=== PATIENT | male | born 1950 | race Hispanic/Latino ===

== ENCOUNTER 2017-10-29 12:54 | Emergency (ER) | payer OTHER ==
[~2017-10-29] VITALS: Ht 167.6 cm; Wt 98.9 kg
[~2017-10-29 12:54] MED LIST: ACETAMINOPHEN-1 EAC3 PO; ASA81EC PO; ASPIR 8181 MG PO; ATORVASTATIN CA40 MG PO; Aspirin PO; BRIMONIDINE TAR10 ML OU; CARDURA4 MG PO; CARVEDILOL3.125 MG PO; CLONIDINE HCL0.1 MG PO; DIGOXIN125 MCG PO; DOXAZOSIN MESYLA4 MG PO; FUROSEMIDE40 MG PO; GLIMEPIRIDE2 MG PO; HYDRALAZINE HCL25 MG PO; HYDROXYZINE HCL25 MG PO; ISM30TCR PO; ISOSORBIDE MONO30 MG PO; LANTUS100 UNITS/ SQ; LASIX20 MG PO; LASIX40 MG PO; LATANOPROST2.5 ML OP; LEVAQUIN250 MG PO; LISINOPRIL10 MG PO; LISINOPRIL2.5 MG PO; LOPRESSOR25 MG PO; LORAZEPAM0.5 MG PO; LYRICA PO; LYRICA75 MG PO; NEXIUM40 MG PO; NIFEDIPINE ER30 M1 PO; NIFEDIPINE ER90 M1 PO; NIFEDIPINE ER90 MG PO; NORCO 7.5-3251 EACH PO; PEPCID20 MG PO; ULTRAM50 MG PO; VENTOLIN HFA18 GM INH; XANAX0.5 MG PO; [UNRECOGNIZED DRUG - OTHER] OU
--- OUTSIDE RECORDS SUMMARY | 2017-10-29 12:58 | XMS REPORT ---
[facility] Address Unknown Phone Unavailable Care Team Providers Care [facility] Nurse Name Role Phone ORLANDO UNGER Unavailable Unavailable Problems This patient has no known problems. Allergies, Adverse Reactions, Alerts This patient has no known allergies or adverse reactions. Medications This patient has no known medications. Results Test Description Test Time Test Comments Text Results Atomic Results Result Comments CHEST 2 VIEWS [place] [address] Patient Name: FILIPPO AKBAR MR #: [id number] : 1950 Age/Sex: 67/M Req #: [id number] Adm Physician: Ordered by: ORLANDO UNGER MD Report #: [id number] Location: OR Room/Bed: Procedure: [id number] DX/CHEST 2 VIEWS Exam Date: 04/13/17 Exam Time: 1330 REPORT STATUS: Signed PROCEDURE: CHEST 2 VIEWS TECHNIQUE: PA and lateral chest INDICATION: Preoperative x-ray for fistula COMPARISON: [facility], , CHEST 2 VIEWS, 2014, 7:42. FINDINGS: Mild interstitial scar in the lingula and left lower lobe. Lungs are otherwise clear and symmetrically inflated. No pleural effusions. Upper limits of normal heart size. Normal central vasculature. Intact skeleton. Healed fracture of the right ribs. CONCLUSION: No acute abnormality. Dictated by: Sai Rogers M.D. on at 13:57 Electronically approved by: Sai Rogers M.D. on 04/13/2017 at 13:57 Dictated By: SAI ROGERS MD [id number] Transcribed By: LISA on 04/13/17 1356 COPY TO: ORLANDO UNGER MD
[2017-10-29 14:41] LABS: BASOPHILS % 0.3 % (0.0-1.0); EOSINOPHILS # (AUTO) 0.2 (0.0-0.4); EOSINOPHILS % 2.2 % (0.0-6.0); HEMATOCRIT 28.8 % (38.2-49.6); HEMOGLOBIN 9.3 g/dL (14.0-18.0); LYMPHOCYTES # (AUTO) 0.8 (1.0-3.2); LYMPHOCYTES % 8.2 % (18.0-39.1); MEAN CORPUSCULAR HEMOGLOBIN 27.8 pg (28-32); MEAN CORPUSCULAR HGB CONC 32.3 g/dL (31-35); MONOCYTES # (AUTO) 0.8 (0.2-0.8); MONOCYTES % 7.4 % (4.4-11.3); NEUTROPHILS # (AUTO) 8.1 (2.1-6.9); NEUTROPHILS % 80.7 % (38.7-80.0); PLATELET COUNT 129 x10e3/uL (140-360); RED BLOOD COUNT 3.35 x10e6/uL (4.3-5.7); RED CELL DISTRIBUTION WIDTH 14.3 % (11.7-14.4)
[2017-10-29 14:47] LABS: CLARITY,URINE CLEAR (CLEAR); COLOR,URINE YELLOW (YELLOW); LEUKOCYTE ESTERASE ,URINE NEGATIVE (NEGATIVE); NITRITE,URINE NEGATIVE (NEGATIVE); PROTEIN,URINE DIPSTICK 3+ (NEGATIVE)
[2017-10-29 14:48] LABS: BILIRUBIN,URINE NEGATIVE (NEGATIVE); KETONES,URINE NEGATIVE (NEGATIVE); URINE UROBILINOGEN 0.2 mg/dL (0.2 - 1)
[2017-10-29 14:57] LABS: ALBUMIN 3.2 g/dL (3.5-5.0); ANION GAP 12.9 mmol/L (8-16); CALCIUM 8.7 mg/dL (8.4-10.2); CREATININE, SERUM 5.6 mg/dL (0.72-1.25); POTASSIUM 4.9 mmol/L (3.5-5.1)
[2017-10-29 15:03] LABS: MUCUS,URINE MANY (RARE); RBC,URINE 0-5 /HPF (0-5); WBC,URINE (MAN) 0-5 /HPF (0-5)
--- NOTE | 2017-10-29 18:55 | Diagnostic Imaging Report ---
EXAM: CT Abdomen and Pelvis WITHOUT contrast INDICATION: Right flank pain \S\renal stone protocl \S\[id number] \S\1820 COMPARISON: None. TECHNIQUE: Abdomen and pelvis were scanned utilizing a multidetector helical scanner from the lung base to the pubic symphysis without administration of IV contrast. Absence of intravenous contrast decreases sensitivity for detection of focal lesions and vascular pathology. Coronal and sagittal reformations were obtained. Renal stone protocol was performed. IV CONTRAST: None ORAL CONTRAST: Water COMPLICATIONS: None RADIATION DOSE: Total DLP: 675.87 mGy*cm Estimated effective dose: (DLP x 0.015 x size factor) mSv CTDIvol has been reviewed. It is below the limits set by the Radiation Protocol Committee (RPC). FINDINGS: LINES and TUBES: None. LOWER THORAX: Trace right pleural effusion with adjacent atelectasis. Small amount of pericardial fluid. Partially imaged coronary artery calcifications. HEPATOBILIARY: Unenhanced liver is unremarkable. Punctate right hepatic lobe calcified granuloma. No biliary ductal dilation. GALLBLADDER: No radio-opaque stones or sludge. No wall thickening. SPLEEN: No splenomegaly. PANCREAS: No focal masses or ductal dilatation. ADRENALS: Normal left adrenal nodule. Right adrenal gland is not visualized. KIDNEYS/URETERS: Right nephrectomy. No left hydronephrosis. Limited for evaluation of left renal parenchyma without intravenous contrast. 1.9 cm exophytic left inferior pole hypodensity is probably a cyst. Left perinephric fat stranding. No stones. GI TRACT: No abnormal distention, wall thickening, or evidence of bowel obstruction. Sigmoid anastomosis is intact. Scattered colonic diverticula without evidence of diverticulitis. Appendix is normal. PELVIC ORGANS/BLADDER: Unremarkable. LYMPH NODES: No lymphadenopathy. Increased number of subcentimeter right lower quadrant mesenteric lymph nodes (series 3, image 88). VESSELS: There is mild atherosclerotic disease in the aorta and major arterial branches. PERITONEUM / RETROPERITONEUM: No free air. Questionable trace ascites in the right paracolic gutter (series 3, image 81). BONES: Old posterior right rib fracture deformities. SOFT TISSUES: Mid abdominal wall eventration without evidence of herniation. IMPRESSION: 1. Status post right nephrectomy. 2. No left hydronephrosis or nephrolithiasis. 3. Increased number of subcentimeter right lower quadrant mesenteric lymph nodes may represent mesenteric adenitis in the appropriate clinical setting. Normal appendix. 4. Trace right pleural effusion with adjacent atelectasis. Signed by: Dr. Andre Mcleod MD on 10/29/2017 6:52 PM
[2017-10-29 20:37] VITALS: BP 158/81
== END 2017-10-29 20:40 | disposition home or self-care (01) ==
LOC: ER 12:54
DX: R10.9 Unspecified abdominal pain (principal); R11.0 Nausea; M54.5 Low back pain; M79.89 Other specified soft tissue disorders; H40.9 Unspecified glaucoma; Z85.53 Personal history of malignant neoplasm of renal pelvis; Z85.46 Personal history of malignant neoplasm of prostate
CPT/HCPCS: 36415; 74176; 80053; 81001; 83880; 85025; 93005; 99284

== ENCOUNTER 2018-04-19 15:42 | Inpatient (IN) | payer OTHER ==
[~2018-04-19] VITALS: Ht 167.6 cm; Wt 93.1 kg
[2018-04-19] MEDS ORDERED: ONDANSETRON HCL INJ 2 MG/ML VIAL IV STA (16:03)
[2018-04-19] MEDS ORDERED: DICYCLOMINE HCL 20 MG/2 ML VIAL IM ONE (16:15)
[2018-04-19 16:44] LABS: BASOPHILS % 0.2 % (0.0-1.0); EOSINOPHILS # (AUTO) 0.2 (0.0-0.4); EOSINOPHILS % 2.8 % (0.0-6.0); HEMATOCRIT 24.8 % (38.2-49.6); HEMOGLOBIN 7.8 g/dL (14.0-18.0); LYMPHOCYTES # (AUTO) 0.6 (1.0-3.2); LYMPHOCYTES % 6.4 % (18.0-39.1); MEAN CORPUSCULAR HEMOGLOBIN 28.6 pg (28-32); MEAN CORPUSCULAR HGB CONC 31.5 g/dL (31-35); MEAN CORPUSCULAR VOLUME 90.8 fL (81-99); MONOCYTES # (AUTO) 0.7 (0.2-0.8); MONOCYTES % 8.2 % (4.4-11.3); NEUTROPHILS % 81.6 % (38.7-80.0); PLATELET COUNT 152 x10e3/uL (140-360); RED BLOOD COUNT 2.73 x10e6/uL (4.3-5.7); RED CELL DISTRIBUTION WIDTH 15.9 % (11.7-14.4)
[2018-04-19 16:52] LABS: BILIRUBIN,URINE NEGATIVE (NEGATIVE); CLARITY,URINE CLEAR (CLEAR); COLOR,URINE YELLOW (YELLOW); KETONES,URINE NEGATIVE (NEGATIVE); LEUKOCYTE ESTERASE ,URINE NEGATIVE (NEGATIVE); NITRITE,URINE NEGATIVE (NEGATIVE); PROTEIN,URINE DIPSTICK 2+ (NEGATIVE); URINE UROBILINOGEN 0.2 mg/dL (0.2 - 1)
--- NOTE | 2018-04-19 16:54 | Diagnostic Imaging Report ---
EXAMINATION: CHEST SINGLE (PORTABLE) INDICATION: \S\ERMD ORDER \S\[id number] \S\1632 \S\Y COMPARISON: CT abdomen and pelvis 04/19/2018 FINDINGS: AP view TUBES and LINES: None. LUNGS: Lungs are well inflated. Bilateral pulmonary edema. Bibasilar atelectasis. PLEURA: Small bilateral pleural effusion, increased. No pneumothorax. HEART AND MEDIASTINUM: Mild enlargement of the cardiac silhouette. Enlarged pulmonary arteries. BONES AND SOFT TISSUES: No acute osseous lesion. Soft tissues are unremarkable. UPPER ABDOMEN: No free air under the diaphragm. IMPRESSION: Worsening bilateral pulmonary edema and small bilateral pleural effusion when compared to CT 04/19/2018. Signed by: Dr. Melissa Del Angel M.D. on 04/19/2018 4:51 PM
[2018-04-19 17:02] LABS: ALBUMIN 3.3 g/dL (3.5-5.0); ALBUMIN/GLOBULIN RATIO 1.1 (0.8-2.0); ANION GAP 19.3 mmol/L (8-16); CALCIUM 7.6 mg/dL (8.4-10.2); CREATININE, SERUM 6.72 mg/dL (0.72-1.25)
[2018-04-19 17:03] LABS: POTASSIUM 5.3 mmol/L (3.5-5.1)
--- NOTE | 2018-04-19 17:04 | Diagnostic Imaging Report ---
EXAM: CT Abdomen and Pelvis WITHOUT contrast INDICATION: \S\upper abd pain, IV contrast only \S\[id number] \S\1629 COMPARISON: CT abdomen and pelvis 10/29/2017 TECHNIQUE: Abdomen and pelvis were scanned utilizing a multidetector helical scanner from the lung base to the pubic symphysis without administration of IV contrast. Absence of intravenous contrast decreases sensitivity for detection of focal lesions and vascular pathology. Coronal and sagittal reformations were obtained. Routine protocol was performed. IV CONTRAST: None. ORAL CONTRAST: Water RADIATION DOSE: Total DLP: 725.2 mGy*cm Estimated effective dose: (DLP x 0.015 x size factor) mSv COMPLICATIONS: None FINDINGS: LINES and TUBES: None. LOWER THORAX: Small low-attenuation right pleural effusion, increased since prior exam. New trace left pleural effusion. Bibasilar atelectasis increased since prior exam. HEPATOBILIARY: No focal hepatic lesions. No biliary ductal dilation. GALLBLADDER: No radio-opaque stones or sludge. No wall thickening. SPLEEN: No splenomegaly. PANCREAS: No focal masses or ductal dilatation. ADRENALS: No adrenal nodules KIDNEYS/URETERS: Right nephrectomy. No hydronephrosis. No cystic or solid mass lesions. No stones. GI TRACT: Stable postsurgical changes in the sigmoid colon. Moderate amount of retained stool throughout the colon without distention. No abnormal distention, wall thickening, or evidence of bowel obstruction. Appendix is normal. PELVIC ORGANS/BLADDER: Unremarkable. LYMPH NODES: Unchanged view subcentimeter nonspecific mesenteric lymph nodes. VESSELS: Atherosclerotic calcifications of the abdominal aorta without aneurysm. PERITONEUM / RETROPERITONEUM: No free air or fluid. Mild increased fat stranding within the mesenteric fat in the right lower quadrant, better seen on series 2, image 38. There is a more defined adjacent oval-shaped fat density measuring 2.4 x 0.9 cm. BONES: Mild degenerative changes of the lumbar spine. SOFT TISSUES: Unremarkable. IMPRESSION: 1. Mildly increased fat stranding of the right lower quadrant mesenteric fat with interval development of an oval shaped fat containing lesion measuring up to 2.4 cm suggestive of omental infarction. Differential diagnosis include omental inflammation. Recommend follow-up CT abdomen and pelvis in 8 weeks. 2. Otherwise, no interval change when compared to prior exam. Signed by: Dr. Melissa Del Angel M.D. on 04/19/2018 5:00 PM
[2018-04-19 17:08] LABS: CREATINE KINASE MB 2.7 ng/mL (0-5.0)
[2018-04-19 17:10] LABS: EPITHELIAL CELLS,URINE RARE /LPF; WBC,URINE (MAN) 0-5 /HPF (0-5)
[2018-04-19 17:12] LABS: AMORPHOUS SEDIMENT,URINE MODERATE (FEW)
[2018-04-19] MEDS ORDERED: SODIUM CHLORIDE 0.9% 250ML 250 ML IV ONE (18:15)
[2018-04-19] MEDS: SODIUM CHLORIDE 0.9% 1000ML 1,000 ML IV SCH ×2 (18:35→18:52)
[2018-04-19] MEDS: FUROSEMIDE INJ 10 MG/ML 4 ML VIAL IV SCH (18:35)
[2018-04-19 19:25] VITALS: BP 160/66
[2018-04-19 21:16] VITALS: BP 138/59
[2018-04-19 22:17] VITALS: BP 141/64
[2018-04-19 22:20] VITALS: BP 141/57
[2018-04-19 22:30] VITALS: BP_SYST 131; BP_SYST 141; BP_DIAS 57; BP_DIAS 58
[2018-04-20] VITALS (8 sets, daily range): BP systolic 109–163; BP diastolic 51–76
[2018-04-20] MEDS ORDERED: EPOETIN ALFA 10000 UNIT/ML VIAL SC ONE (06:00)
[2018-04-20 08:03] LABS: BASOPHILS % 0.4 % (0.0-1.0); EOSINOPHILS # (AUTO) 0.2 (0.0-0.4); EOSINOPHILS % 2.7 % (0.0-6.0); HEMATOCRIT 26.1 % (38.2-49.6); HEMOGLOBIN 8.1 g/dL (14.0-18.0); LYMPHOCYTES # (AUTO) 0.5 (1.0-3.2); LYMPHOCYTES % 6.1 % (18.0-39.1); MEAN CORPUSCULAR HEMOGLOBIN 27.8 pg (28-32); MEAN CORPUSCULAR VOLUME 89.7 fL (81-99); MONOCYTES # (AUTO) 0.8 (0.2-0.8); MONOCYTES % 9.9 % (4.4-11.3); NEUTROPHILS # (AUTO) 6.7 (2.1-6.9); NEUTROPHILS % 80.1 % (38.7-80.0); PLATELET COUNT 138 x10e3/uL (140-360); RED BLOOD COUNT 2.91 x10e6/uL (4.3-5.7); RED CELL DISTRIBUTION WIDTH 15.5 % (11.7-14.4)
[2018-04-20 08:22] LABS: ANION GAP 18.9 mmol/L (8-16); CALCIUM 8.5 mg/dL (8.4-10.2); CREATININE, SERUM 6.61 mg/dL (0.72-1.25); POTASSIUM 4.9 mmol/L (3.5-5.1)
[2018-04-20] MEDS: FUROSEMIDE INJ 10 MG/ML 4 ML VIAL IV SCH ×2 (09:46→21:15)
[2018-04-20] MEDS ORDERED: ONDANSETRON HCL INJ 2 MG/ML VIAL IV PRN (10:00)
[2018-04-20] MEDS ORDERED: CARVEDILOL3.125 MG PO (11:49)
[2018-04-20] MEDS ORDERED: LEVEMIR100 UNIT/1 SC (15:32)
[2018-04-20] MEDS ORDERED: DEXTROSE 50% SYRINGE 50 ML IV PRN (15:45)
[2018-04-20] MEDS: SODIUM BICARBONATE 650 MG TAB PO SCH (16:04)
[2018-04-20] MEDS: BRIMONIDINE TARTRATE 0.15% OPTH DRPS 10ML BTL OP SCH (16:09)
[2018-04-20] MEDS: CARVEDILOL 3.125 MG TAB PO SCH (16:09)
[2018-04-20] MEDS: INSULIN REGULAR, HUMAN 100 UNIT/1 ML 3ML VIAL SQ SCH ×2 (16:43→21:42)
--- NOTE | 2018-04-20 17:13 | Consultation ---
DATE OF CONSULTATION: April 20, 2018 REQUESTING PHYSICIAN: Dr. Torres. REASON FOR CONSULTATION: Chronic kidney disease. HISTORY OF PRESENT ILLNESS: This is a 68-year-old male with history of CKD stage 5, presumed diabetic hypertensive end-organ damage, had a fistula placed about a week ago, came in with worsening nausea, some vomiting as well as dyspnea. Chest x-ray is showing fluid overload. Abdomen CT did not show any obstruction. Creatinines in the 6 range, BUN in the 90, serum CO2 19. His potassium was high at 5.3, it has come down to 4.9 with diuresis. He is feeling somewhat better; however, still has some dyspnea as well as nausea. He feels anxious about the whole situation. PAST MEDICAL HISTORY 1. CKD, stage 5. 2. Hypertension. 3. Type 2 diabetes and end-organ damage. 4. Status post AV access placement. 5. Anemia of CKD. HOME MEDICATIONS: Please see list. REVIEW OF SYSTEMS CONSTITUTIONAL: He feels weak. RESPIRATORY: Dyspnea has improved. CARDIAC: Dyspnea. VASCULAR: Has leg swelling. NEUROLOGIC: Denies headache or seizures. PSYCH: Feels anxious. Rest of the review is negative. FAMILY HISTORY: Diabetes. PHYSICAL EXAMINATION GENERAL: Lying in bed. VITAL SIGNS: Temperature is 98.2, pulse 88, blood pressure 160/76. HEENT: Slight facial puffiness. NECK: JVD at 10 cm. CHEST: Faint crackles at the bases. CARDIAC: Normal heart tones. Rhythm sounds regular. ABDOMEN: Benign. EXTREMITIES: 1+ edema. NEURO: Alert and appropriate. No tremors are seen. LABS: Hemoglobin is 9.1, white count 8.3, platelets 138,000. Sodium 138, potassium 4.9, serum CO2 of 19, creatinine 6.6, BUN 92, calcium 8.5. Phosphorous is added for tomorrow. UA was showing positive proteinuria, no cast. Chest x-ray, fluid overload. ASSESSMENT 1. Chronic kidney disease, stage 5. 2. Metabolic acidosis. 3. Mild hyperkalemia, improved. 4. Fluid overload, improved. 5. Presumed diabetic, hypertensive end-organ damage. PLAN: We will request special procedures to place tunneled catheter, initiate dialysis as such. I think we can wait till they are able to do this as an elective procedure rather than emergently with a temporary dialysis catheter as we do known that the dialysis requirements are long-term., Keep salt and fluid restricted. He has got Epogen and sodium bicarbonate. We will follow along. Job#: [id number] CYNTHIA
[2018-04-20] MEDS: LATANOPROST(OPTH) 2.5 ML BTL OP SCH (21:16)
[2018-04-20] MEDS: INSULIN DETEMIR 100 UNIT/ML PEN SQ SCH (21:42)
[2018-04-21] VITALS (7 sets, daily range): BP systolic 119–173; BP diastolic 50–73
[2018-04-21 06:30] LABS: ANION GAP 17.9 mmol/L (8-16); CALCIUM 8.4 mg/dL (8.4-10.2); CREATININE, SERUM 6.57 mg/dL (0.72-1.25); PHOSPHORUS 6.4 MG/DL (2.3-4.7); POTASSIUM 4.9 mmol/L (3.5-5.1)
[2018-04-21] MEDS: INSULIN REGULAR, HUMAN 100 UNIT/1 ML 3ML VIAL SQ SCH ×4 (07:30→21:54)
[2018-04-21] MEDS: DOXAZOSIN MESYLATE 2 MG TAB PO SCH (09:31)
[2018-04-21] MEDS: BRIMONIDINE TARTRATE 0.15% OPTH DRPS 10ML BTL OP SCH ×2 (09:31→17:16)
[2018-04-21] MEDS: FUROSEMIDE INJ 10 MG/ML 4 ML VIAL IV SCH ×2 (09:31→21:54)
[2018-04-21] MEDS: CARVEDILOL 3.125 MG TAB PO SCH ×2 (09:31→17:16)
[2018-04-21] MEDS: SODIUM BICARBONATE 650 MG TAB PO SCH ×2 (09:31→17:16)
[2018-04-21] MEDS: SEVELAMER CARBONATE 800 MG TAB PO SCH (17:16)
[2018-04-21] MEDS: LATANOPROST(OPTH) 2.5 ML BTL OP SCH (21:54)
[2018-04-21] MEDS: INSULIN DETEMIR 100 UNIT/ML PEN SQ SCH (21:56)
[2018-04-22] VITALS (9 sets, daily range): BP systolic 129–180; BP diastolic 56–85
--- NOTE | 2018-04-22 00:02 | Progress Note ---
DATE: April 21, 2018 NEPHROLOGY FOLLOWUP Feeling a bit better. Dyspnea has improved. He has been on IV Lasix. Urine output was not documented. PHYSICAL EXAMINATION: VITAL SIGNS: Temperature 98.2, pulse 66, blood pressure 134/55. HEENT: Atraumatic. NECK: No definite JVD. CHEST: Faint crackles at the bases. EXTREMITIES: 1+ to 2+ edema. LABS: Hemoglobin is 8.1, K is down to 4.9, creatinine 6.57, BUN 93, phosphorus 6.4. ASSESSMENT: 1. Chronic kidney disease, stage 5. He is probably in end-stage renal disease at this point. 2. Fluid overload. 3. Acidosis, improved. 4. Positive end-stage renal disease. 5. Hypertensive and diabetic end-organ damage. PLAN: Await tunneled dialysis catheter placement. I think the risk of worsening fluid overload, other metabolic abnormality is too high at this point. Await maturity of his AV fistula. AM chemistries. He got erythropoietin yesterday. Will follow along. Job#: [id number]
[2018-04-22 05:56] LABS: INR 1.08
[2018-04-22 05:57] LABS: PARTIAL THROMBOPLASTIN TIME 49.6 seconds (23.8-35.5)
[2018-04-22] MEDS: INSULIN REGULAR, HUMAN 100 UNIT/1 ML 3ML VIAL SQ SCH ×4 (07:30→21:09)
[2018-04-22] MEDS: SEVELAMER CARBONATE 800 MG TAB PO SCH ×3 (08:00→17:39)
[2018-04-22] MEDS: CARVEDILOL 3.125 MG TAB PO SCH ×2 (08:00→17:39)
[2018-04-22] MEDS: SODIUM BICARBONATE 650 MG TAB PO SCH ×2 (08:25→17:34)
[2018-04-22] MEDS: DOXAZOSIN MESYLATE 2 MG TAB PO SCH (08:25)
[2018-04-22] MEDS: FUROSEMIDE INJ 10 MG/ML 4 ML VIAL IV SCH ×2 (08:43→21:09)
[2018-04-22] MEDS: BRIMONIDINE TARTRATE 0.15% OPTH DRPS 10ML BTL OP SCH ×2 (08:43→17:55)
--- NOTE | 2018-04-22 09:23 | Progress Note ---
DATE: April 22, 2018 Breathing is better. Some swelling still. He is nervous about catheter placement. PHYSICAL EXAMINATION GENERAL: Lying in bed in no distress. VITAL SIGNS: Temperature 98.4, pulse 75, blood pressure 150/65. HEENT: Grossly atraumatic. EXTREMITIES: Trace to 1+ edema. CHEST: Clear. Bilateral breath sounds equal. HEART: Normal heart tones. Rhythm sounds regular. LABS: Hemoglobin 8.1. He got Epogen yesterday. Creatinine was 6.6, BUN in the 90s. Hyperkalemia has gotten better. ASSESSMENT 1. Chronic kidney disease, stage 5, presumed diabetic nephropathy. 2. Fluid overload. 3. Metabolic acidosis. 4. Hyperkalemia. 5. Taken together, it appears that he has reached end-stage renal disease. Access is not ready yet. PLAN: Place tunneled dialysis catheter. Get case management to see and initiate dialysis. Will follow along. Stay on p.o. bicarbonate for now. Job#: [id number]
[2018-04-22] MEDS ORDERED: SODIUM CHLORIDE 0.9% 1000ML 2,000 ML IV PRN (10:45)
[2018-04-22] MEDS ORDERED: HEPARIN SOD (PORCINE) 1000 UNIT/ML SDV IV PRN (10:45)
[2018-04-22] MEDS ORDERED: SODIUM CHLORIDE 0.9% 500ML 1,000 ML ONE (10:50)
[2018-04-22] MEDS ORDERED: MIDAZOLAM HCL 2 MG/2 ML VIAL ONE (10:50)
[2018-04-22] MEDS ORDERED: LIDOCAINE 1% W/EPINEPHRINE 20 ML VIAL ONE (10:50)
[2018-04-22] MEDS ORDERED: FENTANYL CITRATE/PF 100MCG/2 ML INJ ONE (10:50)
[2018-04-22] MEDS ORDERED: LIDOCAINE HCL 1% LOCAL INJ 20 ML VIAL ONE (11:07)
[2018-04-22] MEDS ORDERED: HEPARIN SOD (PORCINE) 1000 UNIT/ML 30ML ONE (11:15)
[2018-04-22] MEDS: LORAZEPAM 0.5 MG TAB PO PRN ×2 (13:04→21:58)
[2018-04-22] MEDS: LATANOPROST(OPTH) 2.5 ML BTL OP SCH (21:09)
[2018-04-22] MEDS: INSULIN DETEMIR 100 UNIT/ML PEN SQ SCH (21:09)
[2018-04-23] VITALS (7 sets, daily range): BP systolic 114–177; BP diastolic 51–113
[2018-04-23] MEDS: INSULIN REGULAR, HUMAN 100 UNIT/1 ML 3ML VIAL SQ SCH ×4 (07:30→20:30)
[2018-04-23] MEDS: CARVEDILOL 3.125 MG TAB PO SCH ×2 (08:00→16:42)
[2018-04-23 08:30] LABS: BASOPHILS # (AUTO) 0.1 (0.0-0.1); BASOPHILS % 0.6 % (0.0-1.0); EOSINOPHILS # (AUTO) 0.3 (0.0-0.4); EOSINOPHILS % 3.8 % (0.0-6.0); LYMPHOCYTES % 11.3 % (18.0-39.1); MEAN CORPUSCULAR HEMOGLOBIN 28.3 pg (28-32); MEAN CORPUSCULAR VOLUME 91.2 fL (81-99); MONOCYTES # (AUTO) 1.1 (0.2-0.8); MONOCYTES % 12.2 % (4.4-11.3); NEUTROPHILS # (AUTO) 6.3 (2.1-6.9); NEUTROPHILS % 71.3 % (38.7-80.0); PLATELET COUNT 162 x10e3/uL (140-360); RED BLOOD COUNT 3.18 x10e6/uL (4.3-5.7); RED CELL DISTRIBUTION WIDTH 15.2 % (11.7-14.4)
[2018-04-23 08:51] LABS: ALBUMIN 3.2 g/dL (3.5-5.0); ALBUMIN/GLOBULIN RATIO 1.1 (0.8-2.0); ANION GAP 19.1 mmol/L (8-16); CALCIUM 8.9 mg/dL (8.4-10.2); CREATININE, SERUM 5.26 mg/dL (0.72-1.25); POTASSIUM 4.1 mmol/L (3.5-5.1)
[2018-04-23] MEDS: SEVELAMER CARBONATE 800 MG TAB PO SCH ×3 (08:55→16:54)
[2018-04-23] MEDS: FUROSEMIDE INJ 10 MG/ML 4 ML VIAL IV SCH ×2 (08:55→21:26)
[2018-04-23] MEDS: SODIUM BICARBONATE 650 MG TAB PO SCH ×2 (08:56→16:54)
[2018-04-23] MEDS: DOXAZOSIN MESYLATE 2 MG TAB PO SCH (08:57)
[2018-04-23] MEDS: BRIMONIDINE TARTRATE 0.15% OPTH DRPS 10ML BTL OP SCH ×2 (10:33→16:53)
--- OUTSIDE RECORDS SUMMARY | 2018-04-23 13:34 | XMS REPORT ---
Author Author Keri Coleman Organization [employer] Address Unknown Phone Unavailable Care Team Providers Care Fisher Diver Net Name Role Phone Keri Coleman CP Unavailable Encounters Encounter Location Date check status of referral [facility] Jun 09, 2014 Left Knee [facility] Jun 09, 2014 MRI Knee Right [facility] Apr 14, 2014 Follow Up Lab & MRI Results [facility] Apr 28, 2014 pain contract follow up [facility] May 26, 2014 Problems Problem Type Condition ICD-9 Code Onset Dates Condition Status Problem Hypertension 997.91 Active Problem Diabetes mellitus without mention of complication, type II or unspecified type, uncontrolled 250.02 Active Problem Chronic pain syndrome 338.4 Active Assessment Pain in joint, lower leg 719.46 Active Assessment Stiffness of joint, not elsewhere classified, lower leg 719.56 Active Social History Social History Element Qualifiers Date Reported Smoking status: . Are you a: Never Smoker May 26, 2014 alcohol no. May 26, 2014 Summary Purpose [employer] Submission
--- OUTSIDE RECORDS SUMMARY | 2018-04-23 13:34 | XMS REPORT ---
Author Author Keri Coleman Organization [employer] Address Unknown Phone Unavailable Care Team Providers Care Central Service Tech Name Role Phone Keri Coleman CP Unavailable Encounters Encounter Location Date check status of referral [facility] Jun 09, 2014 Left Knee MRI [facility] Jun 09, 2014 [facility] Jun 22, 2014 Follow Up MRI Results [facility] Jun 22, 2014 MRI Knee Right [facility] Apr 14, 2014 Follow Up Lab & MRI Results [facility] Apr 28, 2014 pain contract follow up [facility] May 26, 2014 referral [facility] November 02, 2014 Follow up Routine [facility] Aug 25, 2014 RIGHT KNEE JORGE L [facility] September 17, 2014 Problems Problem Type Condition ICD-9 Code Onset Dates Condition Status Problem Hypertension 997.91 Active Problem Diabetes mellitus without mention of complication, type II or unspecified type, uncontrolled 250.02 Active Problem Chronic pain syndrome 338.4 Active Assessment Pain in joint, lower leg 719.46 Active Assessment 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 Are you a: Never Smoker September 17, 2014 alcohol no. September 17, 2014 Summary Purpose [employer] Submission
--- OUTSIDE RECORDS SUMMARY | 2018-04-23 13:34 | XMS REPORT ---
Author Author Devorah Hudson [facility] [employer] Address Unknown Phone Unavailable Care Team Providers Care Gift Shop Manager Name Role Phone Devorah Hudson Unavailable Encounters Encounter Location Date check status of referral [facility] Jun 09, 2014 Left Knee MRI [facility] Jun 09, 2014 [facility] Jun 22, 2014 Follow Up MRI Results [facility] Jun 22, 2014 MRI Knee Right [facility] Apr 14, 2014 Lyrica refilled, needs OV [facility] December 01, 2014 Follow Up Lab & MRI Results [...] Active Problem Chronic pain syndrome 338.4 Active Medications Medication Code System Code Instructions Start Date End Date Status Dosage Lyrica MEDISPAN [id number] 75 MG Orally one cap in am, and 2 cap in HS Apr 28, 2014 Active 1 capsule Social History Social History Element Qualifiers Date Reported Smoking status: . Are you a: Never Smoker September 17, 2014 alcohol no. September 17, 2014 Summary Purpose [employer] Submission
--- OUTSIDE RECORDS SUMMARY | 2018-04-23 13:34 | XMS REPORT | Continuity of Care Document ---
Author Author [facility] Interface Address Unknown Phone Unavailable Problems Problem Status Onset Date Classification Date Reported Comments Source Generalized osteoarthrosis, involving multiple sites Active Problem 01/20/2015 Keri Gaxiolalanny Hypertension Active Problem 01/20/2015 Keri Nasyedsherice Diabetes mellitus without mention of complication, type II or unspecified type, uncontrolled Active Problem 01/20/2015 Keri Jared Chronic pain syndrome Active Diagnosis 01/20/2015 Keri Jared Acquired absence of kidney Active Diagnosis 05/29/2014 Keri Jared Pain in joint, lower leg Active Diagnosis 01/20/2015 Keri Jared Pathak's cyst Active Diagnosis 05/29/2014 Keri Jared Stiffness of joint, not elsewhere classified, lower leg Active Diagnosis 06/17/2014 Keri Nalanny OA-knees Active Diagnosis 01/20/2015 Keri Jared Counseling NOS Active Diagnosis 08/27/2014 Keri Nalanny therapeutic drug monitoring Active Diagnosis 08/27/2014 Keri Jared Medications Medication Details Route Status Patient Instructions Ordering Provider Order Date Source Hydrocodone-Acetaminophen 1 tablet as needed Orally Active 5- 325 MG Orally every 8 hrs Naja 02/13/2015 Keri Shermansherice Tramadol HCl 1 tablet as needed Orally Active 50 MG Orally every 6 hrs Naja 10/20/2014 Keri Sherman Hydrocodone-Acetaminophen 1 tablet as needed Orally Active 5- 325 MG Orally every 6 hrs Naja 06/25/2014 Keri Coleman Lyrica 1 capsule Orally Active 75 MG Orally one cap in am, and 2 cap in HS Najam 04/28/2014 Keri Nalanny HydrOXYzine HCl 1 tablet Orally Active 25 MG Orally Three times a day [facility] NIFEdipine ER 1 tablet Orally Active 90 MG Orally Once a day [facility] Atorvastatin Calcium 1 tablet Orally Active 40 MG Orally [facility] Doxazosin Mesylate 1 tablet Orally Active 4 MG Orally Once a day [facility] Lanoxin 1 tablet Orally Active 0.125 MG Orally Once a day Najam Keri Nalanny Lantus Unknown Subcutaneous Active 100 UNIT/ML Subcutaneous Najam Keri Nalanny Carvedilol 1 tablet with food Orally Active 3.125 MG Orally Twice a day Najasherice Keri Nasyedm Tramadol HCl 1 tablet as needed Orally Active 50 MG Orally every 6 hrs Najam Keri Nasyedm Furosemide 1 tablet Orally Active 40 MG Orally Once a day Najam Keri Nasyedm Hydrocodone-Acetaminophen 1 tablet as needed Orally Active 5- 325 MG Orally every 6 hrs Najam Keri Coleman Allergies, Adverse Reactions, Alerts Substance Category Reaction Severity Reaction type Status Date Reported Comments Source N.K.D.A. Adverse Reaction Info Not Available Adverse Reaction Active 01/14/2015 Keri Coleman Immunizations Immunization Date Given Site Status Last Updated Comments Source Results Order Name Results Value Reference Range Date Interpretation Comments Source Vital Signs Vital Sign Value Date Comments Source Height 64 01/14/2015 Keri Najam Diastolic (mm Hg) 60 01/14/2015 Keri Najam Systolic (mm Hg) 121 01/14/2015 Keri Nasyedm Weight 220.8 01/14/2015 Keri Najam Height 64 08/25/2014 Keri Najam Diastolic (mm Hg) 71 08/25/2014 Keri Najam Systolic (mm Hg) 141 08/25/2014 Keri Najam Weight 223 08/25/2014 Keri Najam Height 64 05/26/2014 Keri Najam Diastolic (mm Hg) 68 05/26/2014 Keri Najam Systolic (mm Hg) 137 05/26/2014 Keri Najam Weight 223 05/26/2014 Keri Najam Height 64 04/28/2014 Keri Najam Diastolic (mm Hg) 62 04/28/2014 Keri Najam Systolic (mm Hg) 133 04/28/2014 Keri Najam Weight 218 04/28/2014 Keri Nasyedm Encounters Location Location Details Encounter Type Encounter Number Reason For Visit Attending Provider ADM Date DC Date Status Source Rheumatology Clinic MRI Knee Right [id number] 04/14/2014 04/14/2014 Keri Coleman [facility] MRI Knee Right [id number] 04/14/2014 04/14/2014 [facility] MRI Knee Right [id number] 04/14/2014 04/14/2014 [facility] MRI Knee Right [id number] 04/14/2014 04/14/2014 [facility] MRI Knee Right [id number] 04/14/2014 04/14/2014 [facility] MRI Knee Right [id number] 04/14/2014 04/14/2014 [facility] MRI Knee Right [id number] 04/14/2014 04/14/2014 [facility] MRI Knee Right [id number] 04/14/2014 04/14/2014 [facility] MRI Knee Right [id number] 04/14/2014 04/14/2014 [facility] Rhe[facility]ology Clinic Follow Up Lab & MRI Results [id number] 04/28/2014 04/28/2014 [facility]ology Clinic Follow Up Lab & MRI Results [id number] 04/28/2014 04/28/2014 [facility] Clinic Follow Up Lab & MRI Results [id number] 04/28/2014 04/28/2014 [facility]ology Clinic Follow Up Lab & MRI Results [id number] 04/28/2014 04/28/2014 [facility] Rhe[facility]ology Clinic Follow Up Lab & MRI Results [id number] 04/28/2014 04/28/2014 [facility] Rhe[facility]ology Clinic Follow Up Lab & MRI Results [id number] 04/28/2014 04/28/2014 [facility] Rheumatology Clinic Follow Up Lab & MRI Results [id number] 04/28/2014 04/28/2014 [facility] Rhe[facility]ology Clinic Follow Up Lab & MRI Results [id number] 04/28/2014 04/28/2014 [facility] Rheumatology Clinic Follow Up Lab & MRI Results [id number] 04/28/2014 04/28/2014 [facility] Rheumatology Clinic pain contract follow up [id number] 05/26/2014 05/26/2014 [facility] Rhe[facility]ology Clinic pain contract follow up [id number] 05/26/2014 05/26/2014 [facility] Rheumatology Clinic pain contract follow up [id number] 05/26/2014 05/26/2014 [facility] Rhe[facility]ology Clinic pain contract follow up [id number] 05/26/2014 05/26/2014 [facility]ology Clinic pain contract follow up [id number] 05/26/2014 05/26/2014 [facility]ology Clinic pain contract follow up [id number] 05/26/2014 05/26/2014 [facility] Rheumatology Clinic pain contract follow up [id number] 05/26/2014 05/26/2014 [facility] Rheumatology [facility] pain contract follow up [id number] 05/26/2014 05/26/2014 [facility] Rheumatology [facility] check status of referral [id number] 06/09/2014 06/09/2014 [facility] Clinic check status of referral [id number] 06/09/2014 06/09/2014 [facility] Rheumatology [facility] check status of referral [id number] 06/09/2014 06/09/2014 [facility] Rheumatology [facility] check status of referral [id number] 06/09/2014 06/09/2014 [facility] Rheumatology [facility] check status of referral [id number] 06/09/2014 06/09/2014 [facility] Rheumatology [facility] check status of referral [id number] 06/09/2014 06/09/2014 [facility] Rheumatology [facility] check status of referral [id number] 06/09/2014 06/09/2014 [facility] Left Knee MRI [id number] 06/09/2014 06/09/2014 [facility] Left Knee MRI [id number] 06/09/2014 06/09/2014 [facility] Left Knee MRI [id number] 06/09/2014 06/09/2014 [facility] Left Knee MRI [id number] 06/09/2014 06/09/2014 [facility] Left Knee MRI [id number] 06/09/2014 06/09/2014 [facility] Left Knee MRI [id number] 06/09/2014 06/09/2014 [facility]ology Clinic Follow Up MRI Results [id number] 06/22/2014 06/22/2014 [facility] Clinic Follow Up MRI Results [id number] 06/22/2014 06/22/2014 [facility] Follow Up MRI Results [id number] 06/22/2014 06/22/2014 [facility] Clinic Follow Up MRI Results [id number] 06/22/2014 06/22/2014 [facility] Follow Up MRI Results [id number] 06/22/2014 06/22/2014 [facility] Clinic orthopedica [id number] 06/22/2014 06/22/2014 [facility] orthopedica [id number] 06/22/2014 06/22/2014 [facility] orthopedica [id number] 06/22/2014 06/22/2014 [facility] orthopedica [id number] 06/22/2014 06/22/2014 [facility] orthopedica [id number] 06/22/2014 06/22/2014 [facility] Clinic Follow up Routine [id number] 08/25/2014 08/25/2014 [facility] Clinic Follow up Routine [id number] 08/25/2014 08/25/2014 [facility] Clinic Follow up Routine [id number] 08/25/2014 08/25/2014 [facility] Clinic Follow up Routine [id number] 08/25/2014 08/25/2014 [facility] Clinic RIGHT KNEE JORGE L INJ [id number] 09/17/2014 09/17/2014 [facility] RIGHT KNEE JORGE L INJ [id number] 09/17/2014 09/17/2014 [facility] RIGHT KNEE JORGE L INJ [id number] 09/17/2014 09/17/2014 [facility] Clinic referral [id number] 11/02/2014 11/02/2014 [facility] referral [id number] 11/02/2014 11/02/2014 [facility] Clinic referral [id number] 11/02/2014 11/02/2014 [facility] Clinic Lyrica refilled, needs OV [id number] 12/01/2014 12/01/2014 Keri Coleman [facility] Lyrica refilled, needs OV [id number] 12/01/2014 12/01/2014 Keri Coleman [facility]ology Clinic Follow up Routine [id number] 01/14/2015 01/14/2015 Keri Coleman Procedures Procedure Code Date Perfomer Comments Source
--- OUTSIDE RECORDS SUMMARY | 2018-04-23 13:34 | XMS REPORT ---
Author Author Keri Coleman Organization [employer] Address Unknown Phone Unavailable Care Team Providers Care Rehabilitation Psychologist Name Role Phone Whitsherice Keri CP Unavailable Allergies, Adverse Reactions, Alerts Substance Reaction Event Type N.K.D.A. Info Not Available Non Drug Allergy Encounters Encounter Location Date MRI Knee Right Rheumatology Clinic Apr 14, 2014 Follow Up Lab & MRI Results Rheumatology Clinic Apr 28, 2014 pain contract follow up Rheumatology Clinic May 26, 2014 Problems Problem Type Condition ICD-9 Code Onset Dates Condition Status Assessment Generalized osteoarthrosis, involving multiple sites 715.09 Active Problem Hypertension 997.91 Active Problem Diabetes mellitus without mention of complication, type II or unspecified type, uncontrolled 250.02 Active Problem Chronic pain syndrome 338.4 Active Assessment Acquired absence of kidney V45.73 Active Assessment Pain in joint, lower leg 719.46 Active Assessment Chronic pain syndrome 338.4 Active Assessment Pathak's cyst 727.51 Active Medications Medication Code System Code Instructions Start Date End Date Status Dosage HydrOXYzine HCl [facility] [address]-60 25 MG Orally Three times a day Active 1 tablet NIFEdipine ER [facility] [address]-11 90 MG Orally Once a day Active 1 tablet Atorvastatin Calcium [facility] [address]-88 40 MG Orally Once a day Active 1 tablet Hydrocodone-Acetaminophen [facility] [address]-31 5-325 MG Orally every 6 hrs Jun 25, 2014 Active 1 tablet as needed Doxazosin Mesylate [facility] [address]-14 4 MG Orally Once a day Active 1 tablet Lanoxin [facility] [address]-11 0.125 MG Orally Once a day Active 1 tablet Lantus [facility] [address]-22 100 UNIT/ML Subcutaneous Active Unknown Carvedilol [facility] [address]-94 3.125 MG Orally Twice a day Active 1 tablet with food Tramadol HCl [facility] [address]-33 50 MG Orally every 6 hrs Active 1 tablet as needed Lyrica [facility] [address]-88 75 MG Orally Twice a day Apr 28, 2014 Active 1 capsule Furosemide [facility] [address]-84 40 MG Orally Once a day Active 1 tablet Social History Social History Element Qualifiers Date Reported Smoking status: . Are you a: Never Smoker May 26, 2014 alcohol no. May 26, 2014 Vital Signs Date/Time: May 26, 2014 Height 64 in Blood Pressure Diastolic 68 mm Hg Blood Pressure Systolic 137 mm Hg Weight 223 lbs Summary Purpose [employer] Submission
--- OUTSIDE RECORDS SUMMARY | 2018-04-23 13:34 | XMS REPORT ---
Author Author Keri Coleman Organization [employer] Address Unknown Phone Unavailable Care Team Providers Care Pump Installation And Servicer Name Role Phone Keri Coleman CP Unavailable [...] Active Problem Chronic pain syndrome 338.4 Active Social History Social History Element Qualifiers Date Reported Smoking status: . Are you a: Never Smoker Jun 22, 2014 alcohol no. Jun 22, 2014 Summary Purpose [employer] Submission
--- OUTSIDE RECORDS SUMMARY | 2018-04-23 13:34 | XMS REPORT ---
Author Author Keri Coleman Organization [employer] Address Unknown Phone Unavailable Care Team Providers Care Stress Analyst Name Role Phone Keri Coleman CP Unavailable Allergies, Adverse Reactions, Alerts Substance Reaction Event Type N.K.D.A. Info Not Available Non Drug Allergy Encounters Encounter Location Date MRI Knee Right Rheumatology Clinic Apr 14, 2014 Follow Up Lab & MRI Results Rheumatology Clinic Apr 28, 2014 Problems Problem Type Condition ICD-9 Code Onset Dates Condition Status Problem Diabetes mellitus without mention of complication, type II or unspecified type, uncontrolled 250.02 Active Assessment Pathak's cyst 727.51 Active Problem Hypertension 997.91 Active Assessment Generalized osteoarthrosis, involving multiple sites 715.09 Active Assessment Acquired absence of kidney V45.73 Active Assessment Pain in joint, lower leg 719.46 Active Medications Medication Code System Code Instructions Start Date End Date Status Dosage NIFEdipine ER [facility] [address]-51 90 MG Orally Once a day Active 1 tablet Hydrocodone-Acetaminophen [facility] [address]-40 5-325 MG Orally every 6 hrs Active 1 tablet as needed Doxazosin Mesylate [facility] [address]-66 4 MG Orally Once a day Active 1 tablet Lanoxin [facility] [address]-68 0.125 MG Orally Once a day Active 1 tablet Tramadol HCl [facility] [address]-99 50 MG Orally every 6 hrs Active 1 tablet as needed Furosemide [facility] [address]-49 40 MG Orally Once a day Active 1 tablet Lantus [facility] [address]-63 100 UNIT/ML Subcutaneous Active Unknown Atorvastatin Calcium [facility] [address]-62 40 MG Orally Once a day Active 1 tablet Carvedilol [facility] [address]-14 3.125 MG Orally Twice a day Active 1 tablet with food Lyrica [facility] [address]-54 75 MG Orally Twice a day Apr 28, 2014 Active 1 capsule HydrOXYzine HCl [facility] [address]-64 25 MG Orally Three times a day Active 1 tablet Social History Social History Element Qualifiers Date Reported Smoking status: . Are you a: Never Smoker Apr 28, 2014 alcohol no. Apr 28, 2014 Vital Signs Date/Time: Apr 28, 2014 Height 64 in Blood Pressure Diastolic 62 mm Hg Blood Pressure Systolic 133 mm Hg Weight 218 lbs Summary Purpose [employer] Submission
--- OUTSIDE RECORDS SUMMARY | 2018-04-23 13:34 | XMS REPORT ---
Author Author Keri Coleman [facility] [employer] Address Unknown Phone Unavailable Care Team Providers Care Rehabilitation Liaison Name Role Phone WhitshericeKeri CP Unavailable Allergies, Adverse Reactions, Alerts Substance Reaction Event Type N.K.D.A. Info Not Available Non Drug Allergy Encounters Encounter Location Date check status of [...] MRI Results Rheumatology Clinic Apr 28, 2014 Follow up Routine Rheumatology Clinic January 14, 2015 pain contract follow up Rheumatology Clinic May 26, 2014 referral Rheumatology Clinic November 02, 2014 Follow up Routine Rheumatology Clinic Aug 25, 2014 RIGHT KNEE JORGE L INJ Rheumatology Clinic September 17, 2014 Problems Problem Type Condition ICD-9 Code Onset Dates Condition Status Assessment Chronic pain syndrome 338.4 Active Problem Chronic pain syndrome 338.4 Active Problem Hypertension 997.91 Active Problem Generalized osteoarthrosis, involving multiple sites 715.09 Active Assessment Pain in joint, lower leg 719.46 Active Assessment OA-knees 715.96 Active Problem Diabetes mellitus without mention of complication, type II or unspecified type, uncontrolled 250.02 Active Assessment Generalized osteoarthrosis, involving multiple sites 715.09 Active Medications Medication Code System Code Instructions Start Date End Date Status Dosage Lantus [facility] [address]-15 100 UNIT/ML Subcutaneous Active Unknown Carvedilol [facility] [address]-02 3.125 MG Orally Twice a day Active 1 tablet with food NIFEdipine ER [facility] [address]-19 90 MG Orally Once a day Active 1 tablet Doxazosin Mesylate [facility] [address]-20 4 MG Orally Once a day Active 1 tablet Lanoxin [facility] [address]-16 0.125 MG Orally Once a day Active 1 tablet Hydrocodone-Acetaminophen [facility] [address]-06 5-325 MG Orally every 8 hrs Feb 13, 2015 Active 1 tablet as needed HydrOXYzine HCl [facility] [address]-16 25 MG Orally Three times a day Active 1 tablet Furosemide [facility] [address]-13 40 MG Orally Once a day Active 1 tablet Lyrica [facility] [address]-75 75 MG Orally one cap in am, and 2 cap in HS Apr 28, 2014 Active 1 capsule Atorvastatin Calcium [facility] [address]-91 40 MG Orally Once a day Active 1 tablet Social History Social History Element Qualifiers Date Reported Smoking status: . Are you a: Never Smoker January 14, 2015 alcohol no. January 14, 2015 Vital Signs Date/Time: January 14, 2015 Height 64 in Blood Pressure Diastolic 60 mm Hg Blood Pressure Systolic 121 mm Hg Weight 220.8 lbs Summary Purpose [employer] Submission
--- OUTSIDE RECORDS SUMMARY | 2018-04-23 13:34 | XMS REPORT ---
Author Author Keri Coleman Organization [employer] Address Unknown Phone Unavailable Care Team Providers Care Business Continuity Management Director Name Role Phone Whitsherice Keri CP Unavailable [...] follow up Rheumatology Clinic May 26, 2014 Follow up Routine Rheumatology Clinic Aug 25, 2014 Problems Problem Type Condition ICD-9 Code Onset Dates Condition Status Problem Hypertension 997.91 Active Problem Diabetes mellitus without mention of complication, type II or unspecified type, uncontrolled 250.02 Active Problem Chronic pain syndrome 338.4 Active Assessment Counseling NOS V65.40 Active Assessment Pain in joint, lower leg 719.46 Active Assessment Chronic pain syndrome 338.4 Active Assessment therapeutic drug monitoring V58.83 Active Medications Medication Code System Code Instructions Start Date End Date Status Dosage Atorvastatin Calcium [facility] [address]-98 40 MG Orally Once a day Active 1 tablet Tramadol HCl [facility] [address]-32 50 MG Orally every 6 hrs October 20, 2014 Active 1 tablet as needed NIFEdipine ER [facility] [address]-66 90 MG Orally Once a day Active 1 tablet Doxazosin Mesylate [facility] [address]-63 4 MG Orally Once a day Active 1 tablet Carvedilol [facility] [address]-70 3.125 MG Orally Twice a day Active 1 tablet with food Lantus [facility] [address]-48 100 UNIT/ML Subcutaneous Active Unknown HydrOXYzine HCl [facility] [address]-40 25 MG Orally Three times a day Active 1 tablet Furosemide [facility] [address]-25 40 MG Orally Once a day Active 1 tablet Hydrocodone-Acetaminophen [facility] [address]-79 5-325 MG Orally every 6 hrs Jun 25, 2014 Active 1 tablet as needed Lanoxin [facility] [address]-86 0.125 MG Orally Once a day Active 1 tablet Lyrica [facility] [address]-69 75 MG Orally one cap in am, and 2 cap in HS Apr 28, 2014 Active 1 capsule Social History Social History Element Qualifiers Date Reported Smoking status: . Are you a: Never Smoker Aug 25, 2014 alcohol no. Aug 25, 2014 Vital Signs Date/Time: Aug 25, 2014 Height 64 in Blood Pressure Diastolic 71 mm Hg Blood Pressure Systolic 141 mm Hg Weight 223 lbs Summary Purpose [employer] Submission
--- OUTSIDE RECORDS SUMMARY | 2018-04-23 13:34 | XMS REPORT ---
Author Author Keri Coleman Organization [employer] Address Unknown Phone Unavailable Care Team Providers Care Clerical And Administrative Workers Name Role Phone Keri Coleman CP Unavailable Encounters Encounter Location Date check status of referral Rheumatology Clinic Jun 09, 2014 MRI Knee [...]
[2018-04-23] MEDS: INSULIN DETEMIR 100 UNIT/ML PEN SQ SCH (20:30)
[2018-04-23] MEDS: LATANOPROST(OPTH) 2.5 ML BTL OP SCH (21:26)
[2018-04-23] MEDS: LORAZEPAM 0.5 MG TAB PO PRN (22:04)
[2018-04-24 04:00] VITALS: BP 141/58
[2018-04-24] MEDS: INSULIN REGULAR, HUMAN 100 UNIT/1 ML 3ML VIAL SQ SCH ×4 (07:30→21:10)
[2018-04-24] MEDS: CARVEDILOL 3.125 MG TAB PO SCH ×2 (08:00→17:25)
[2018-04-24] MEDS: FUROSEMIDE INJ 10 MG/ML 4 ML VIAL IV SCH ×2 (08:26→21:09)
[2018-04-24] MEDS: SEVELAMER CARBONATE 800 MG TAB PO SCH ×3 (08:26→17:25)
[2018-04-24] MEDS: DOXAZOSIN MESYLATE 2 MG TAB PO SCH (08:27)
[2018-04-24] MEDS: SODIUM BICARBONATE 650 MG TAB PO SCH ×2 (08:27→17:25)
[2018-04-24] MEDS: BRIMONIDINE TARTRATE 0.15% OPTH DRPS 10ML BTL OP SCH ×2 (08:27→17:25)
[2018-04-24 08:29] VITALS: BP 122/51
[2018-04-24] MEDS: LORAZEPAM 0.5 MG TAB PO PRN ×2 (08:53→15:19)
--- NOTE | 2018-04-24 10:45 | Diagnostic Imaging Report ---
Date and Time: 04/22/2018 Procedure: Tunneled hemodialysis catheter placement tetryl screen operator: Dr. Castano Pre-operative diagnosis: End-stage renal disease Post-operative diagnosis: End-stage renal disease Conscious Sedation: Versed 1.5 mg and Fentanyl 75 mcg. The patient's heart rate and pulse oximetry were continuously monitored by the interventional radiology nurse. Blood pressure was monitored at 5 minute intervals. Total intraservice time for sedation: 30 minutes Additional Medications: Lidocaine 1%, lidocaine 1% with epinephrine Fluoroscopy time: 0.7 minutes Dose-area Product: 314.4 cGycm2. Contrast used: 0 Estimated blood loss: Less than 10 cc Blood products administered: None Specimens: None Implants: 16 [place], 23 cm tip-cuff tunneled hemodialysis catheter Condition at completion: Stable Disposition: Returned to floor DISCUSSION: Informed consent was obtained and documented in the medical record after discussion of risks and benefits. The right neck and upper chest was prepped and draped in the standard sterile fashion after the patient was placed in the supine position on the fluoroscopic table. 1% lidocaine was administered into the skin and subcutaneous tissues of the right lower neck for local anesthesia. Then, under continuous sonographic guidance, a 21-gauge micropuncture needle was advanced into the right internal jugular vein. A 0.018 inch wire was advanced centrally under fluoroscopic guidance. The needle was then removed and access was secured with a micropuncture sheath. Intravascular length to the upper right atrium was determined using the microwire, which was then removed along with the inner dilator of the micropuncture sheath. A 0.035 inch Amplatz Super Stiff wire was then advanced through the micropuncture sheath into the inferior vena cava under fluoroscopic guidance. Attention was then turned to the right upper chest. A suitable catheter exit site was determined, approximately 3 fingerbreadths inferior to the clavicle. The skin was marked. 1% lidocaine with epinephrine was used to anesthetize a subcutaneous tract extending from the planned catheter exit site to the venotomy at the right lower neck. A stab incision was made on the right upper chest. Subsequently, the catheter was tunneled from the exit site of the right upper chest to the venotomy at the right lower neck. The retention cuff of the catheter was advanced well into the subcutaneous tunnel. The micropuncture sheath was then removed over the wire and the tract was serially dilated. Finally, a 16.5-[place] peel-away sheath was advanced over the wire under fluoroscopic guidance. The wire and inner dilator of the sheath were removed and the catheter was advanced through the peel-away sheath, which was then broken and removed. The catheter tip was positioned in the upper right atrium. Each catheter lumen showed good bidirectional flow. Each lumen was then packed with 2500 units of heparin. The catheter was secured at the exit site on the right upper chest with monofilament nylon suture. The venotomy at the right lower neck was closed with tissue adhesive. A sterile dressing was applied. The patient tolerated the procedure well without immediate complication. FINDINGS: Patent right internal jugular vein. IMPRESSION: Successful placement of a 16 [place], 23 cm tip-cuff tunneled hemodialysis catheter by a right internal jugular approach under sonographic and fluoroscopic guidance. Signed by: Dr. Ventura Castano M.D. on 04/22/2018 12:27 PM
[2018-04-24 13:38] VITALS: BP 165/67
[2018-04-24 16:32] VITALS: BP_SYST 165; BP_SYST 174; BP_DIAS 67; BP_DIAS 84
[2018-04-24 20:00] VITALS: BP 121/51
[2018-04-24] MEDS: LATANOPROST(OPTH) 2.5 ML BTL OP SCH (21:09)
[2018-04-24] MEDS: INSULIN DETEMIR 100 UNIT/ML PEN SQ SCH (21:10)
[2018-04-25] VITALS (9 sets, daily range): BP systolic 110–146; BP diastolic 51–93
[2018-04-25] MEDS: INSULIN REGULAR, HUMAN 100 UNIT/1 ML 3ML VIAL SQ SCH ×4 (07:30→21:19)
[2018-04-25] MEDS: FUROSEMIDE INJ 10 MG/ML 4 ML VIAL IV SCH ×2 (08:54→21:18)
[2018-04-25] MEDS: CARVEDILOL 3.125 MG TAB PO SCH ×2 (08:54→16:53)
[2018-04-25] MEDS: BRIMONIDINE TARTRATE 0.15% OPTH DRPS 10ML BTL OP SCH ×2 (08:54→16:53)
[2018-04-25] MEDS: SODIUM BICARBONATE 650 MG TAB PO SCH ×2 (08:54→16:53)
[2018-04-25] MEDS: DOXAZOSIN MESYLATE 2 MG TAB PO SCH (08:54)
[2018-04-25] MEDS: SEVELAMER CARBONATE 800 MG TAB PO SCH ×3 (08:54→16:53)
[2018-04-25] MEDS: TRAMADOL HCL 50 MG TAB PO PRN ×2 (09:17→16:55)
[2018-04-25] MEDS: LORAZEPAM 0.5 MG TAB PO PRN ×2 (09:59→21:20)
[2018-04-25] MEDS: LATANOPROST(OPTH) 2.5 ML BTL OP SCH (21:19)
[2018-04-25] MEDS: INSULIN DETEMIR 100 UNIT/ML PEN SQ SCH (21:20)
[2018-04-26] VITALS: BP 155/68
[2018-04-26 04:00] VITALS: BP 177/88
[2018-04-26 07:25] VITALS: BP 164/76
[2018-04-26] MEDS: INSULIN REGULAR, HUMAN 100 UNIT/1 ML 3ML VIAL SQ SCH ×2 (07:30→12:22)
[2018-04-26] MEDS: CARVEDILOL 3.125 MG TAB PO SCH ×2 (08:00→08:52)
[2018-04-26] MEDS: SODIUM BICARBONATE 650 MG TAB PO SCH (08:52)
[2018-04-26] MEDS: DOXAZOSIN MESYLATE 2 MG TAB PO SCH ×2 (08:52→09:00)
[2018-04-26] MEDS: FUROSEMIDE INJ 10 MG/ML 4 ML VIAL IV SCH (08:52)
[2018-04-26] MEDS: SEVELAMER CARBONATE 800 MG TAB PO SCH ×2 (08:52→12:21)
[2018-04-26] MEDS: BRIMONIDINE TARTRATE 0.15% OPTH DRPS 10ML BTL OP SCH (08:52)
[2018-04-26] MEDS: LORAZEPAM 0.5 MG TAB PO PRN (08:53)
[2018-04-26] MEDS: TRAMADOL HCL 50 MG TAB PO PRN (08:53)
[2018-04-26 09:04] VITALS: BP 164/76
[2018-04-26 11:32] VITALS: BP 129/62
[2018-04-26] MEDS ORDERED: COREG3.125 MG PO (13:46)
[2018-04-26 15:58] VITALS: BP 144/68
== END 2018-04-26 16:12 | disposition home or self-care (01) | DRG 673 ==
LOC: ER 15:42 → ERHOLD 18:24 → MED/SURG 22:17
PROVIDERS: ADMIT Internal Medicine; ATTEND Internal Medicine
PROC: 5A1D70Z Performance of Urinary Filtration, Intermittent, Less than 6 Hours Per Day (ICD-10-PCS; principal; 2018-04-22)
PROC: 0JH63XZ Insertion of Tunneled Vascular Access Device into Chest Subcutaneous Tissue and Fascia, Percutaneous Approach (ICD-10-PCS; 2018-04-22)
PROC: 02HV33Z Insertion of Infusion Device into Superior Vena Cava, Percutaneous Approach (ICD-10-PCS; 2018-04-22)
PROC: B5181ZA Fluoroscopy of Superior Vena Cava using Low Osmolar Contrast, Guidance (ICD-10-PCS; 2018-04-22)
PROC: 5A1D70Z Performance of Urinary Filtration, Intermittent, Less than 6 Hours Per Day (ICD-10-PCS; 2018-04-23)
PROC: 5A1D70Z Performance of Urinary Filtration, Intermittent, Less than 6 Hours Per Day (ICD-10-PCS; 2018-04-24)
PROC: 5A1D70Z Performance of Urinary Filtration, Intermittent, Less than 6 Hours Per Day (ICD-10-PCS; 2018-04-26)
DX: I12.0 Hypertensive chronic kidney disease with stage 5 chronic kidney disease or end stage renal disease (principal); J81.0 Acute pulmonary edema; N17.9 Acute kidney failure, unspecified; E87.2 Acidosis; E11.22 Type 2 diabetes mellitus with diabetic chronic kidney disease; N18.3 Chronic kidney disease, stage 3 (moderate); D63.1 Anemia in chronic kidney disease; E87.5 Hyperkalemia; E11.51 Type 2 diabetes mellitus with diabetic peripheral angiopathy without gangrene; Z79.4 Long term (current) use of insulin
CPT/HCPCS: 36415; 36565; 71045; 74176; 74470; 80048; 80053; 81001; 82150; 82550; 82553; 82948; 83690; 83880; 84100; 84484; 85025; 85610; 85730; 86704; 86705; 86706; 86850; 86900; 86920; 87340; 90962; 93005; 96372; 99284; C1769; J0500; J1644; J1940; J2001; J2250; J2405; J7030; J7040; P9016; Q4081

== ENCOUNTER 2019-08-19 20:32 | Emergency (ER) | payer OTHER ==
[~2019-08-19] VITALS: Ht 167.6 cm; Wt 82.1 kg
[~2019-08-19 20:32] MED LIST changes: +CALCIUM ACETAT667 M1 PO; +CARVEDILOL12.5 MG PO; +COREG3.125 MG PO; +CYMBALTA30 MG PO; +LEVEMIR100 UNIT/1 SC; +TYLENOL WITH C1 EACH PO
[2019-08-19] MEDS ORDERED: IBUPROFEN 400 MG TAB PO NR (21:30)
[2019-08-19] MEDS ORDERED: LIDOCAINE 4% PATCH TP ONE (21:30)
[2019-08-19] MEDS ORDERED: HYDROCODONE/APAP 10MG-325MG TAB PO NR (21:30)
== END 2019-08-19 22:50 | disposition home or self-care (01) ==
LOC: ER 20:32
DX: M54.5 Low back pain (principal); M48.56XA Collapsed vertebra, not elsewhere classified, lumbar region, initial encounter for fracture; G89.29 Other chronic pain; I10 Essential (primary) hypertension; E11.9 Type 2 diabetes mellitus without complications; I50.9 Heart failure, unspecified
CPT/HCPCS: 99283

== ENCOUNTER 2021-03-21 17:24 | Inpatient (IN) | payer OTHER ==
[~2021-03-21] VITALS: Ht 167.6 cm; Wt 74.8 kg
[2021-03-21] MEDS ORDERED: SODIUM CHLORIDE FLUSH 10 ML SYR INJ PRN (17:45)
[2021-03-21] MEDS ORDERED: REMDESIVIR 200MG 200 MG in SODIUM CHLORIDE 0.9% 100 ML IV ONE (18:00)
[2021-03-21] MEDS ORDERED: DEXTROSE 50% SYRINGE 50 ML IV PRN (20:30)
[2021-03-21] MEDS ORDERED: INSULIN REGULAR, HUMAN 100 UNIT/1 ML SQ SCH (21:00)
[2021-03-21 21:16] VITALS: BP 144/77
[2021-03-21 21:33] VITALS: BP 144/77
[2021-03-22] VITALS (7 sets, daily range): BP systolic 101–156; BP diastolic 51–80
[2021-03-22] MEDS ORDERED: ZIPRASIDONE 20 MG VIAL IM STA (03:50)
[2021-03-22] MEDS ORDERED: BENZONATATE 100 MG CAP PO PRN ×2 (04:00→06:45)
[2021-03-22] MEDS ORDERED: DEXTROSE 50% SYRINGE 50 ML IV PRN (06:45)
[2021-03-22] MEDS ORDERED: ALBUTEROL SULFATE HFA 8GM INHALATION AEROSOL INH PRN (06:45)
[2021-03-22] MEDS: ALBUTEROL SULFATE HFA 8GM INHALATION AEROSOL INH SCH ×3 (06:45→23:15)
[2021-03-22] MEDS ORDERED: GUAIFENESIN/CODEINE 10 ML CUP PO PRN (06:45)
[2021-03-22] MEDS: ACETAMINOPHEN 325 MG TAB PO PRN ×3 (06:48→21:26)
[2021-03-22] MEDS: IPRATROPIUM BROMIDE INHALER 12.9 GM INH INH SCH ×3 (07:00→23:15)
[2021-03-22] MEDS: INSULIN LISPRO 100 UNIT/1 ML 3ML VIAL SQ SCH ×5 (07:30→20:34)
[2021-03-22 08:10] LABS: ALBUMIN/GLOBULIN RATIO 0.9 (0.8-2.0); ANION GAP 19.3 mmol/L (8-16); CALCIUM 7.9 mg/dL (8.4-10.2); CREATININE, SERUM 7.89 mg/dL (0.72-1.25); POTASSIUM 4.3 mmol/L (3.5-5.1)
[2021-03-22] MEDS ORDERED: SODIUM CHLORIDE 0.9% 250ML 250 ML ONE (08:37)
[2021-03-22] MEDS: DEXAMETHASONE SOD PHOS INJ 4 MG/ML SDV IV SCH (08:42)
[2021-03-22] MEDS: CEFTRIAXONE 1 GM in SODIUM CHLORIDE 0.9% 50ML 50 ML IV SCH (08:42)
[2021-03-22] MEDS ORDERED: SODIUM CHLORIDE 0.9% 1000ML 2,000 ML ONE (09:28)
[2021-03-22 09:29] LABS: HEMATOCRIT 29.5 % (38.2-49.6); LYMPHOCYTES # (AUTO) 0.3 (1.0-3.2); LYMPHOCYTES % 5.3 % (18.0-39.1); MEAN CORPUSCULAR HEMOGLOBIN 28.4 pg (28-32); MEAN CORPUSCULAR HGB CONC 30.5 g/dL (31-35); MEAN CORPUSCULAR VOLUME 93.1 fL (81-99); MONOCYTES # (AUTO) 0.3 (0.2-0.8); MONOCYTES % 5.1 % (4.4-11.3); NEUTROPHILS # (AUTO) 4.7 (2.1-6.9); NEUTROPHILS % 88.7 % (38.7-80.0); RED BLOOD COUNT 3.17 x10e6/uL (4.3-5.7); RED CELL DISTRIBUTION WIDTH 14.7 % (11.7-14.4)
[2021-03-22 09:40] LABS: PLATELET COUNT 47 x10e3/uL (140-360)
[2021-03-22] MEDS: CALCIUM ACETATE 667 MG GELCAP PO SCH ×3 (09:48→16:44)
[2021-03-22] MEDS: DULOXETINE HCL 30 MG DELAYED RELEASE PO SCH (09:49)
[2021-03-22] MEDS: CARVEDILOL 12.5 MG TAB PO SCH ×2 (09:49→17:11)
[2021-03-22] MEDS: PANTOPRAZOLE SOD 40 MG TABEC PO SCH (09:49)
[2021-03-22] MEDS: BRIMONIDINE TARTRATE 0.15% OPTH DRPS 10ML BTL OP SCH ×2 (09:50→17:11)
[2021-03-22] MEDS: HEPARIN SOD (PORCINE) 5,000 UNIT/ML VIAL SC SCH ×2 (12:04→21:33)
[2021-03-22 12:46] LABS: PLATELET ESTIMATE SLIGHTLY DECREASED; PLATELET MORPHOLOGY COMMENT NORMAL; RBC MORPHOLOGY COMMENT NORMAL
[2021-03-22] MEDS: REMDESIVIR 100MG 100 MG in SODIUM CHLORIDE 0.9% 100 ML IV SCH (16:26)
[2021-03-22] MEDS: DOXAZOSIN MESYLATE 2 MG TAB PO SCH (21:00)
[2021-03-22] MEDS: INSULIN GLARGINE 100 UNITS/ML VIAL SC SCH (21:32)
[2021-03-22] MEDS: LATANOPROST(OPTH) 2.5 ML BTL OP SCH (23:15)
[2021-03-23] VITALS (12 sets, daily range): BP systolic 112–144; BP diastolic 43–79
[2021-03-23] MEDS: IPRATROPIUM BROMIDE INHALER 12.9 GM INH INH SCH ×4 (01:00→22:02)
[2021-03-23] MEDS: ALBUTEROL SULFATE HFA 8GM INHALATION AEROSOL INH SCH ×3 (05:06→22:02)
[2021-03-23] MEDS: PANTOPRAZOLE SOD 40 MG TABEC PO SCH (05:07)
[2021-03-23] MEDS: CALCIUM ACETATE 667 MG GELCAP PO SCH ×3 (05:07→16:23)
[2021-03-23 05:16] LABS: ANION GAP 18.4 mmol/L (8-16); CALCIUM 8.2 mg/dL (8.4-10.2); CREATININE, SERUM 6.08 mg/dL (0.72-1.25); POTASSIUM 4.4 mmol/L (3.5-5.1)
[2021-03-23] MEDS: INSULIN LISPRO 100 UNIT/1 ML 3ML VIAL SQ SCH ×4 (08:58→21:00)
[2021-03-23] MEDS: CEFTRIAXONE 1 GM in SODIUM CHLORIDE 0.9% 50ML 50 ML IV SCH (08:59)
[2021-03-23] MEDS: BRIMONIDINE TARTRATE 0.15% OPTH DRPS 10ML BTL OP SCH ×2 (08:59→16:24)
[2021-03-23] MEDS: DEXAMETHASONE SOD PHOS INJ 4 MG/ML SDV IV SCH (08:59)
[2021-03-23] MEDS: DULOXETINE HCL 30 MG DELAYED RELEASE PO SCH (08:59)
[2021-03-23] MEDS: CARVEDILOL 12.5 MG TAB PO SCH ×2 (09:00→18:21)
[2021-03-23] MEDS ORDERED: SODIUM CHLORIDE 0.9% 1000ML 1,000 ML ONE (09:39)
[2021-03-23] MEDS: REMDESIVIR 100MG 100 MG in SODIUM CHLORIDE 0.9% 100 ML IV SCH (14:43)
[2021-03-23 15:10] LABS: HEMATOCRIT 22.4 % (38.2-49.6); LYMPHOCYTES # (AUTO) 0.4 (1.0-3.2); LYMPHOCYTES % 7.5 % (18.0-39.1); MEAN CORPUSCULAR HEMOGLOBIN 28.6 pg (28-32); MEAN CORPUSCULAR HGB CONC 29.9 g/dL (31-35); MEAN CORPUSCULAR VOLUME 95.7 fL (81-99); MONOCYTES # (AUTO) 0.3 (0.2-0.8); MONOCYTES % 5.6 % (4.4-11.3); NEUTROPHILS # (AUTO) 4.5 (2.1-6.9); NEUTROPHILS % 85.9 % (38.7-80.0); RED BLOOD COUNT 2.34 x10e6/uL (4.3-5.7); RED CELL DISTRIBUTION WIDTH 15.2 % (11.7-14.4)
[2021-03-23 15:16] LABS: PLATELET COUNT 54 x10e3/uL (140-360)
[2021-03-23 15:17] LABS: HEMOGLOBIN 6.7 g/dL (14.0-18.0)
[2021-03-23 15:25] LABS: INR 1.72; PROTHROMBIN TIME 20.5 seconds (11.9-14.5)
[2021-03-23 15:27] LABS: PARTIAL THROMBOPLASTIN TIME 88.7 seconds (23.8-35.5)
[2021-03-23] MEDS ORDERED: SODIUM CHLORIDE 0.9% 250ML 250 ML IV ONE (15:50)
[2021-03-23] MEDS: LATANOPROST(OPTH) 2.5 ML BTL OP SCH (18:19)
[2021-03-23] MEDS: HEPARIN SOD (PORCINE) 5,000 UNIT/ML VIAL SC SCH ×2 (18:29→21:00)
[2021-03-23] MEDS ORDERED: SODIUM CHLORIDE 0.9% 250ML 250 ML ONE (19:33)
[2021-03-23] MEDS: DOXAZOSIN MESYLATE 2 MG TAB PO SCH ×2 (21:00→22:38)
[2021-03-23] MEDS: INSULIN GLARGINE 100 UNITS/ML VIAL SC SCH (21:00)
[2021-03-23] MEDS: ACETAMINOPHEN 325 MG TAB PO PRN (22:02)
[2021-03-23 23:30] LABS: % IRON SATURATION 10 % (15-50); IRON 10 ug/dL (65-175); TOTAL IRON BINDING CAPACITY 104 ug/dL (261-478); TRANSFERRIN 74 mg/dL (174-364)
[2021-03-24] VITALS (7 sets, daily range): BP systolic 118–146; BP diastolic 40–65
[2021-03-24] MEDS ORDERED: ACETAMINOPHEN/CODEINE 300MG - 30MG TAB PO PRN (00:15)
[2021-03-24] MEDS ORDERED: LORAZEPAM INJ 2 MG/ML VIAL IV PRN (00:15)
[2021-03-24] MEDS: IPRATROPIUM BROMIDE INHALER 12.9 GM INH INH SCH ×4 (04:23→20:55)
[2021-03-24 05:57] LABS: HEMATOCRIT 29.8 % (38.2-49.6); HEMOGLOBIN 9.2 g/dL (14.0-18.0); LYMPHOCYTES # (AUTO) 0.5 (1.0-3.2); LYMPHOCYTES % 8.1 % (18.0-39.1); MEAN CORPUSCULAR HEMOGLOBIN 28.4 pg (28-32); MEAN CORPUSCULAR HGB CONC 30.9 g/dL (31-35); MONOCYTES # (AUTO) 0.3 (0.2-0.8); MONOCYTES % 5.1 % (4.4-11.3); NEUTROPHILS # (AUTO) 5.5 (2.1-6.9); NEUTROPHILS % 86.2 % (38.7-80.0); PLATELET COUNT 79 x10e3/uL (140-360); RED BLOOD COUNT 3.24 x10e6/uL (4.3-5.7); RED CELL DISTRIBUTION WIDTH 15.3 % (11.7-14.4)
[2021-03-24] MEDS: ALBUTEROL SULFATE HFA 8GM INHALATION AEROSOL INH SCH (06:00)
[2021-03-24 06:39] LABS: ANION GAP 16.5 mmol/L (8-16); CALCIUM 8.4 mg/dL (8.4-10.2); CREATININE, SERUM 4.45 mg/dL (0.72-1.25); POTASSIUM 4.5 mmol/L (3.5-5.1)
[2021-03-24] MEDS: PANTOPRAZOLE SOD 40 MG TABEC PO SCH (07:30)
[2021-03-24] MEDS: CALCIUM ACETATE 667 MG GELCAP PO SCH ×3 (07:30→16:30)
[2021-03-24] MEDS: BRIMONIDINE TARTRATE 0.15% OPTH DRPS 10ML BTL OP SCH (09:00)
[2021-03-24] MEDS: CARVEDILOL 12.5 MG TAB PO SCH (09:00)
[2021-03-24] MEDS: IRON SUCROSE 100 MG in SODIUM CHLORIDE 0.9% 100 ML 100 ML IV SCH (09:00)
[2021-03-24] MEDS: DULOXETINE HCL 30 MG DELAYED RELEASE PO SCH (09:00)
[2021-03-24] MEDS: DEXAMETHASONE SOD PHOS INJ 4 MG/ML SDV IV SCH (09:00)
[2021-03-24] MEDS: INSULIN LISPRO 100 UNIT/1 ML 3ML VIAL SQ SCH ×4 (11:29→21:07)
[2021-03-24] MEDS: CEFTRIAXONE 1 GM in SODIUM CHLORIDE 0.9% 50ML 50 ML IV SCH (11:29)
[2021-03-24] MEDS: HEPARIN SOD (PORCINE) 5,000 UNIT/ML VIAL SC SCH ×2 (11:35→21:06)
[2021-03-24] MEDS: REMDESIVIR 100MG 100 MG in SODIUM CHLORIDE 0.9% 100 ML IV SCH (14:00)
[2021-03-24] MEDS: DOXAZOSIN MESYLATE 2 MG TAB PO SCH (20:56)
[2021-03-24] MEDS: LATANOPROST(OPTH) 2.5 ML BTL OP SCH (20:56)
[2021-03-25] MEDS: IPRATROPIUM BROMIDE INHALER 12.9 GM INH INH SCH ×4 (01:00→19:00)
[2021-03-25 01:53] VITALS: BP 149/66
[2021-03-25] MEDS ORDERED: LACTULOSE SYRUP 20 GM/30 ML UDC PO STA (02:09)
[2021-03-25] MEDS ORDERED: RIFAXIMIN 550 MG TABLET PO STA (02:09)
[2021-03-25] MEDS: LORAZEPAM INJ 2 MG/ML VIAL IV PRN (03:02)
[2021-03-25 05:36] VITALS: BP 141/69
[2021-03-25 06:21] LABS: BASOPHILS % 0.2 % (0.0-1.0); HEMOGLOBIN 9.3 g/dL (14.0-18.0); LYMPHOCYTES # (AUTO) 0.4 (1.0-3.2); MEAN CORPUSCULAR HEMOGLOBIN 28.2 pg (28-32); MEAN CORPUSCULAR VOLUME 93.9 fL (81-99); MONOCYTES # (AUTO) 0.4 (0.2-0.8); NEUTROPHILS # (AUTO) 5.1 (2.1-6.9); NEUTROPHILS % 85.6 % (38.7-80.0); PLATELET COUNT 89 x10e3/uL (140-360); RED CELL DISTRIBUTION WIDTH 15.7 % (11.7-14.4)
[2021-03-25 06:48] LABS: ANION GAP 22.2 mmol/L (8-16); CALCIUM 8.6 mg/dL (8.4-10.2); CREATININE, SERUM 6.4 mg/dL (0.72-1.25); POTASSIUM 5.2 mmol/L (3.5-5.1)
[2021-03-25] MEDS: PANTOPRAZOLE SOD 40 MG TABEC PO SCH (07:30)
[2021-03-25] MEDS: CALCIUM ACETATE 667 MG GELCAP PO SCH ×3 (07:30→16:30)
[2021-03-25 08:00] VITALS: BP 174/74
[2021-03-25] MEDS: LACTULOSE SYRUP 20 GM/30 ML UDC PO SCH ×2 (09:00→17:00)
[2021-03-25] MEDS: IRON SUCROSE 100 MG in SODIUM CHLORIDE 0.9% 100 ML 100 ML IV SCH (09:00)
[2021-03-25] MEDS: DEXAMETHASONE SOD PHOS INJ 4 MG/ML SDV IV SCH (09:00)
[2021-03-25] MEDS: CEFTRIAXONE 1 GM in SODIUM CHLORIDE 0.9% 50ML 50 ML IV SCH (09:00)
[2021-03-25] MEDS: DULOXETINE HCL 30 MG DELAYED RELEASE PO SCH (09:00)
[2021-03-25] MEDS: RIFAXIMIN 550 MG TABLET PO SCH ×2 (09:00→17:00)
[2021-03-25] MEDS: CARVEDILOL 12.5 MG TAB PO SCH ×3 (09:00→17:59)
[2021-03-25] MEDS: BRIMONIDINE TARTRATE 0.15% OPTH DRPS 10ML BTL OP SCH ×3 (09:00→17:59)
[2021-03-25] MEDS ORDERED: SODIUM CHLORIDE 0.9% 1000ML 1,000 ML ONE (10:59)
[2021-03-25] MEDS ORDERED: LORAZEPAM INJ 2 MG/ML VIAL IV ONE (12:00)
[2021-03-25] MEDS: INSULIN LISPRO 100 UNIT/1 ML 3ML VIAL SQ SCH ×2 (12:12→22:04)
[2021-03-25] MEDS: HEPARIN SOD (PORCINE) 5,000 UNIT/ML VIAL SC SCH ×2 (12:16→21:50)
[2021-03-25] MEDS: REMDESIVIR 100MG 100 MG in SODIUM CHLORIDE 0.9% 100 ML IV SCH (14:00)
[2021-03-25] MEDS: EPOETIN ALFA-EPBX 10,000 UNIT/ML VIAL SC SCH (16:00)
[2021-03-25 18:17] VITALS: BP 121/66
[2021-03-25 20:00] VITALS: BP 112/50
[2021-03-25] MEDS: LATANOPROST(OPTH) 2.5 ML BTL OP SCH (21:00)
[2021-03-25] MEDS: DOXAZOSIN MESYLATE 2 MG TAB PO SCH (21:45)
[2021-03-25] MEDS: ALBUTEROL SULFATE HFA 8GM INHALATION AEROSOL INH SCH (22:00)
[2021-03-26] VITALS (11 sets, daily range): BP systolic 96–147; BP diastolic 58–74
[2021-03-26] MEDS: IPRATROPIUM BROMIDE INHALER 12.9 GM INH INH SCH ×4 (01:00→21:50)
[2021-03-26] MEDS: ALBUTEROL SULFATE HFA 8GM INHALATION AEROSOL INH SCH ×3 (05:18→21:51)
[2021-03-26] MEDS: LACTULOSE SYRUP 20 GM/30 ML UDC PO SCH ×2 (09:00→16:08)
[2021-03-26 09:46] LABS: BASOPHILS % 0.1 % (0.0-1.0); HEMATOCRIT 32.9 % (38.2-49.6); LYMPHOCYTES # (AUTO) 0.4 (1.0-3.2); LYMPHOCYTES % 4.8 % (18.0-39.1); MEAN CORPUSCULAR HEMOGLOBIN 28.3 pg (28-32); MEAN CORPUSCULAR HGB CONC 30.4 g/dL (31-35); MEAN CORPUSCULAR VOLUME 93.2 fL (81-99); MONOCYTES # (AUTO) 0.7 (0.2-0.8); MONOCYTES % 8.6 % (4.4-11.3); NEUTROPHILS # (AUTO) 6.9 (2.1-6.9); NEUTROPHILS % 84.9 % (38.7-80.0); PLATELET COUNT 107 x10e3/uL (140-360); RED BLOOD COUNT 3.53 x10e6/uL (4.3-5.7); RED CELL DISTRIBUTION WIDTH 15.6 % (11.7-14.4)
[2021-03-26] MEDS: IRON SUCROSE 100 MG in SODIUM CHLORIDE 0.9% 100 ML 100 ML IV SCH (10:01)
[2021-03-26] MEDS: PANTOPRAZOLE SOD 40 MG TABEC PO SCH (10:01)
[2021-03-26] MEDS: CALCIUM ACETATE 667 MG GELCAP PO SCH ×3 (10:01→16:30)
[2021-03-26] MEDS: DEXAMETHASONE SOD PHOS INJ 4 MG/ML SDV IV SCH (10:01)
[2021-03-26] MEDS: CARVEDILOL 12.5 MG TAB PO SCH ×2 (10:02→17:00)
[2021-03-26] MEDS: DULOXETINE HCL 30 MG DELAYED RELEASE PO SCH (10:02)
[2021-03-26] MEDS: RIFAXIMIN 550 MG TABLET PO SCH ×2 (10:02→17:00)
[2021-03-26] MEDS: HEPARIN SOD (PORCINE) 5,000 UNIT/ML VIAL SC SCH ×2 (10:03→21:00)
[2021-03-26] MEDS: BRIMONIDINE TARTRATE 0.15% OPTH DRPS 10ML BTL OP SCH ×2 (10:03→17:27)
[2021-03-26] MEDS: INSULIN LISPRO 100 UNIT/1 ML 3ML VIAL SQ SCH ×4 (10:03→21:52)
[2021-03-26 10:05] LABS: ANION GAP 21.3 mmol/L (8-16); CALCIUM 8.7 mg/dL (8.4-10.2); CREATININE, SERUM 5.47 mg/dL (0.72-1.25); POTASSIUM 4.3 mmol/L (3.5-5.1)
[2021-03-26] MEDS ORDERED: SODIUM CHLORIDE 0.9% 50ML 50 ML ONE (10:18)
[2021-03-26] MEDS: LORAZEPAM INJ 2 MG/ML VIAL IV PRN ×2 (11:49→22:11)
[2021-03-26] MEDS ORDERED: GUAIFENESIN/CODEINE 5 ML LIQD PO PRN (16:15)
[2021-03-26] MEDS: DOXAZOSIN MESYLATE 2 MG TAB PO SCH (22:11)
[2021-03-26] MEDS: LATANOPROST(OPTH) 2.5 ML BTL OP SCH (22:11)
[2021-03-27] VITALS (16 sets, daily range): BP systolic 83–176; BP diastolic 58–82
[2021-03-27] MEDS: IPRATROPIUM BROMIDE INHALER 12.9 GM INH INH SCH ×4 (01:00→19:00)
[2021-03-27] MEDS: LORAZEPAM INJ 2 MG/ML VIAL IV PRN (02:55)
[2021-03-27] MEDS: ALBUTEROL SULFATE HFA 8GM INHALATION AEROSOL INH SCH ×3 (05:12→22:00)
[2021-03-27 06:14] LABS: BASOPHILS % 0.1 % (0.0-1.0); HEMATOCRIT 31.5 % (38.2-49.6); HEMOGLOBIN 10.1 g/dL (14.0-18.0); LYMPHOCYTES # (AUTO) 0.3 (1.0-3.2); LYMPHOCYTES % 1.9 % (18.0-39.1); MEAN CORPUSCULAR HEMOGLOBIN 28.7 pg (28-32); MEAN CORPUSCULAR HGB CONC 32.1 g/dL (31-35); MEAN CORPUSCULAR VOLUME 89.5 fL (81-99); MONOCYTES # (AUTO) 0.8 (0.2-0.8); MONOCYTES % 5.5 % (4.4-11.3); NEUTROPHILS # (AUTO) 12.3 (2.1-6.9); NEUTROPHILS % 89.9 % (38.7-80.0); PLATELET COUNT 89 x10e3/uL (140-360); RED BLOOD COUNT 3.52 x10e6/uL (4.3-5.7); RED CELL DISTRIBUTION WIDTH 15.8 % (11.7-14.4)
[2021-03-27 06:35] LABS: ANION GAP 23.6 mmol/L (8-16); CREATININE, SERUM 7.04 mg/dL (0.72-1.25); POTASSIUM 4.6 mmol/L (3.5-5.1)
[2021-03-27] MEDS: CALCIUM ACETATE 667 MG GELCAP PO SCH ×3 (07:30→16:30)
[2021-03-27] MEDS: PANTOPRAZOLE SOD 40 MG TABEC PO SCH (07:30)
[2021-03-27] MEDS: RIFAXIMIN 550 MG TABLET PO SCH ×2 (08:02→17:00)
[2021-03-27] MEDS: CARVEDILOL 12.5 MG TAB PO SCH ×2 (08:02→17:00)
[2021-03-27] MEDS: DULOXETINE HCL 30 MG DELAYED RELEASE PO SCH (08:02)
[2021-03-27] MEDS: LACTULOSE SYRUP 20 GM/30 ML UDC PO SCH ×2 (08:03→17:00)
[2021-03-27] MEDS: IRON SUCROSE 100 MG in SODIUM CHLORIDE 0.9% 100 ML 100 ML IV SCH (08:43)
[2021-03-27] MEDS: DEXAMETHASONE SOD PHOS INJ 4 MG/ML SDV IV SCH (08:43)
[2021-03-27] MEDS: BRIMONIDINE TARTRATE 0.15% OPTH DRPS 10ML BTL OP SCH ×2 (08:43→17:00)
[2021-03-27] MEDS: INSULIN LISPRO 100 UNIT/1 ML 3ML VIAL SQ SCH ×3 (08:44→17:47)
[2021-03-27] MEDS: HEPARIN SOD (PORCINE) 5,000 UNIT/ML VIAL SC SCH ×2 (08:44→22:00)
[2021-03-27] MEDS ORDERED: Vancomycin IV 1 GM in SODIUM CHLORIDE 0.9% 250ML 250 ML IV ONE (11:45)
[2021-03-27] MEDS ORDERED: MEROPENEM 500 MG in SODIUM CHLORIDE 0.9% 50ML 50 ML IV SCH (13:00)
[2021-03-27 14:28] LABS: ABG HCO3 26 mmol/L (22-26); ABG PCO2 40 mmHg (35-45); ABG PH 7.41 (7.35-7.45); ABG PO2 65 mmHg (80-105); ABG TCO2 27
[2021-03-27] MEDS: MEROPENEM 500 MG in SODIUM CHLORIDE 0.9% 50ML 50 ML IV SCH (15:59)
[2021-03-27] MEDS: LATANOPROST(OPTH) 2.5 ML BTL OP SCH (21:00)
[2021-03-27] MEDS: DOXAZOSIN MESYLATE 2 MG TAB PO SCH (21:00)
[2021-03-28] VITALS (24 sets, daily range): BP systolic 114–180; BP diastolic 54–82
[2021-03-28] MEDS: INSULIN LISPRO 100 UNIT/1 ML 3ML VIAL SQ SCH ×4 (00:23→17:57)
[2021-03-28] MEDS: IPRATROPIUM BROMIDE INHALER 12.9 GM INH INH SCH ×3 (01:00→13:00)
[2021-03-28] MEDS: MEROPENEM 500 MG in SODIUM CHLORIDE 0.9% 50ML 50 ML IV SCH ×2 (02:44→16:30)
[2021-03-28] MEDS ORDERED: LABETALOL HCL 5 MG/ML 20ML VIAL IV PRN (03:45)
[2021-03-28] MEDS: ALBUTEROL SULFATE HFA 8GM INHALATION AEROSOL INH SCH ×2 (06:00→14:00)
[2021-03-28 06:21] LABS: BASOPHILS % 0.2 % (0.0-1.0); HEMATOCRIT 30.3 % (38.2-49.6); HEMOGLOBIN 9.7 g/dL (14.0-18.0); LYMPHOCYTES # (AUTO) 0.3 (1.0-3.2); LYMPHOCYTES % 2.5 % (18.0-39.1); MEAN CORPUSCULAR HEMOGLOBIN 28.8 pg (28-32); MEAN CORPUSCULAR VOLUME 89.9 fL (81-99); MONOCYTES # (AUTO) 0.6 (0.2-0.8); MONOCYTES % 5.8 % (4.4-11.3); NEUTROPHILS # (AUTO) 9.2 (2.1-6.9); NEUTROPHILS % 83.6 % (38.7-80.0); PLATELET COUNT 79 x10e3/uL (140-360); RED BLOOD COUNT 3.37 x10e6/uL (4.3-5.7); RED CELL DISTRIBUTION WIDTH 16.1 % (11.7-14.4)
[2021-03-28 06:54] LABS: ALBUMIN 2.5 g/dL (3.5-5.0); ALBUMIN/GLOBULIN RATIO 0.7 (0.8-2.0); ANION GAP 22.7 mmol/L (8-16); CALCIUM 9.1 mg/dL (8.4-10.2); CREATININE, SERUM 8.47 mg/dL (0.72-1.25); POTASSIUM 4.7 mmol/L (3.5-5.1)
[2021-03-28] MEDS: CALCIUM ACETATE 667 MG GELCAP PO SCH ×3 (07:30→16:30)
[2021-03-28] MEDS: PANTOPRAZOLE SOD 40 MG TABEC PO SCH (07:30)
[2021-03-28] MEDS: LACTULOSE SYRUP 20 GM/30 ML UDC PO SCH ×2 (09:00→16:31)
[2021-03-28] MEDS: RIFAXIMIN 550 MG TABLET PO SCH ×2 (09:00→16:31)
[2021-03-28] MEDS: CARVEDILOL 12.5 MG TAB PO SCH ×2 (09:00→16:31)
[2021-03-28] MEDS: DULOXETINE HCL 30 MG DELAYED RELEASE PO SCH (09:00)
[2021-03-28] MEDS: DEXAMETHASONE SOD PHOS INJ 4 MG/ML SDV IV SCH (12:42)
[2021-03-28] MEDS: BRIMONIDINE TARTRATE 0.15% OPTH DRPS 10ML BTL OP SCH ×2 (12:42→16:30)
[2021-03-28] MEDS: HEPARIN SOD (PORCINE) 5,000 UNIT/ML VIAL SC SCH ×2 (12:46→21:19)
[2021-03-28 12:59] LABS: ABG PCO2 38 mmHg (35-45); ABG PH 7.37 (7.35-7.45); ABG PO2 57 mmHg (80-105)
[2021-03-28 13:00] LABS: ABG HCO3 22 mmol/L (22-26); ABG TCO2 23
[2021-03-28] MEDS: EPOETIN ALFA-EPBX 10,000 UNIT/ML VIAL SC SCH (17:46)
[2021-03-28] MEDS: IRON SUCROSE 100 MG in SODIUM CHLORIDE 0.9% 100 ML 100 ML IV SCH (17:46)
[2021-03-28] MEDS: DEXMEDETOMIDINE 400MCG/NS100ML 100 ML IV PRN (17:47)
[2021-03-28] MEDS: DOXAZOSIN MESYLATE 2 MG TAB PO SCH (21:00)
[2021-03-28] MEDS: LATANOPROST(OPTH) 2.5 ML BTL OP SCH (21:18)
[2021-03-29] VITALS (7 sets, daily range): BP systolic 105–118; BP diastolic 48–80
[2021-03-29] MEDS: MEROPENEM 500 MG in SODIUM CHLORIDE 0.9% 50ML 50 ML IV SCH (02:45)
[2021-03-29] MEDS: DEXMEDETOMIDINE 400MCG/NS100ML 100 ML IV PRN (06:23)
[2021-03-29 06:48] LABS: BASOPHILS % 0.2 % (0.0-1.0); HEMATOCRIT 33.2 % (38.2-49.6); HEMOGLOBIN 10.6 g/dL (14.0-18.0); LYMPHOCYTES # (AUTO) 0.2 (1.0-3.2); LYMPHOCYTES % 1.3 % (18.0-39.1); MEAN CORPUSCULAR HEMOGLOBIN 28.5 pg (28-32); MEAN CORPUSCULAR HGB CONC 31.9 g/dL (31-35); MEAN CORPUSCULAR VOLUME 89.2 fL (81-99); MONOCYTES # (AUTO) 0.9 (0.2-0.8); NEUTROPHILS # (AUTO) 16.3 (2.1-6.9); NEUTROPHILS % 92.6 % (38.7-80.0); PLATELET COUNT 73 x10e3/uL (140-360); RED BLOOD COUNT 3.72 x10e6/uL (4.3-5.7); RED CELL DISTRIBUTION WIDTH 16.4 % (11.7-14.4)
[2021-03-29] MEDS: INSULIN LISPRO 100 UNIT/1 ML 3ML VIAL SQ SCH ×2 (06:48)
[2021-03-29 07:14] LABS: ALBUMIN 2.3 g/dL (3.5-5.0); ALBUMIN/GLOBULIN RATIO 0.6 (0.8-2.0); ANION GAP 22.5 mmol/L (8-16); CALCIUM 8.8 mg/dL (8.4-10.2); CREATININE, SERUM 4.84 mg/dL (0.72-1.25); POTASSIUM 4.5 mmol/L (3.5-5.1)
[2021-03-29] MEDS: CALCIUM ACETATE 667 MG GELCAP PO SCH (07:30)
[2021-03-29] MEDS: PANTOPRAZOLE SOD 40 MG TABEC PO SCH (07:30)
[2021-03-29] MEDS ORDERED: NOREPINEPHRINE 8 MG/D5W 250 ML 250 ML ONE (07:42)
[2021-03-29] MEDS ORDERED: VECURONIUM BROMIDE FOR INJ 20 MG VIAL IV ONE (13:55)
[2021-03-29] MEDS ORDERED: ETOMIDATE 40 MG/ 20ML VIAL IV ONE (13:55)
[2021-03-29] MEDS ORDERED: MIDAZOLAM HCL 2 MG/2 ML VIAL INJ ONE (13:55)
[2021-03-29] MEDS ORDERED: SUCCINYLCHOLINE CHLORIDE 20 MG/ML 10ML VIAL IV ONE (13:55)
== END 2021-03-29 13:56 | disposition expired | DRG 871 ==
LOC: ER 17:34 → ERHOLD 18:37 → MED/SURG2 21:29 → IMCU 03-23 23:11 → COVIDICU 03-27 13:50
PROVIDERS: ADMIT Internal Medicine; ATTEND Internal Medicine
PROC: 5A1D70Z Performance of Urinary Filtration, Intermittent, Less than 6 Hours Per Day (ICD-10-PCS; 2021-03-22)
PROC: 30233N1 Transfusion of Nonautologous Red Blood Cells into Peripheral Vein, Percutaneous Approach (ICD-10-PCS; 2021-03-23)
PROC: 02HV33Z Insertion of Infusion Device into Superior Vena Cava, Percutaneous Approach (ICD-10-PCS; principal; 2021-03-27)
PROC: B548ZZA Ultrasonography of Superior Vena Cava, Guidance (ICD-10-PCS; 2021-03-27)
PROC: 5A09457 Assistance with Respiratory Ventilation, 24-96 Consecutive Hours, Continuous Positive Airway Pressure (ICD-10-PCS; 2021-03-27)
PROC: 5A1935Z Respiratory Ventilation, Less than 24 Consecutive Hours (ICD-10-PCS; 2021-03-29)
PROC: 0BH17EZ Insertion of Endotracheal Airway into Trachea, Via Natural or Artificial Opening (ICD-10-PCS; 2021-03-29)
PROC: 5A12012 Performance of Cardiac Output, Single, Manual (ICD-10-PCS; 2021-03-29)
PROC: 5A2204Z Restoration of Cardiac Rhythm, Single (ICD-10-PCS; 2021-03-29)
DX: A41.89 Other specified sepsis (principal); U07.1 COVID-19; J12.82 Pneumonia due to coronavirus disease 2019; J96.01 Acute respiratory failure with hypoxia; N18.6 End stage renal disease; G92 Toxic encephalopathy; J18.9 Pneumonia, unspecified organism; I13.2 Hypertensive heart and chronic kidney disease with heart failure and with stage 5 chronic kidney disease, or end stage renal disease; D62 Acute posthemorrhagic anemia; E11.22 Type 2 diabetes mellitus with diabetic chronic kidney disease; I50.9 Heart failure, unspecified; E66.9 Obesity, unspecified; Z99.2 Dependence on renal dialysis; Z90.5 Acquired absence of kidney; Z85.528 Personal history of other malignant neoplasm of kidney; Z85.46 Personal history of malignant neoplasm of prostate; R65.20 Severe sepsis without septic shock; Z68.30 Body mass index [BMI] 30.0-30.9, adult; F32.9 Major depressive disorder, single episode, unspecified; D63.8 Anemia in other chronic diseases classified elsewhere; D69.6 Thrombocytopenia, unspecified; K74.60 Unspecified cirrhosis of liver; D50.9 Iron deficiency anemia, unspecified; Z79.4 Long term (current) use of insulin
CPT/HCPCS: 36415; 36600; 71045; 76705; 80048; 80053; 82140; 82607; 82746; 82805; 82948; 83540; 83605; 84466; 84484; 85025; 85045; 85610; 85730; 86039; 86140; 86704; 86706; 86850; 86900; 86920; 87040; 87340; 92950; 93005; 94002; 94660; 96372; 99285; J0330; J0456; J0696; J1100; J1644; J1756; J2060; J2185; J2250; J3370; J3486; J7030; J7050; P9016; U0002